=== PATIENT | male | born 1945 | race Caucasian/White ===

== ENCOUNTER 2017-11-21 12:28 | Inpatient (IN) | payer OTHER, MEDICARE ==
[~2017-11-21] VITALS: Ht 182.9 cm; Wt 72.0 kg
[~2017-11-21 12:28] MED LIST: AMLO5TAB PO; AMOX-422 PO; CLOP75TA33 PO; FURO40TA4 PO; IPRA3AMP IH; METO100T14 PO; NITR0.4T51 SL; PANT40TA4 PO; POTA20TA10 PO; PRED20TA PO; RANO500T3 PO
[2017-11-21 13:15] LABS: BASOPHILS % (AUTO) 0 % (0-1); EOSINOPHILS # (AUTO) 0.3 X10'3 (0-0.9); EOSINOPHILS % (AUTO) 1.9 % (0-6); HEMATOCRIT 33.5 % (42.0-52.0); LYMPHOCYTES # (AUTO) 0.5 X10'3 (1.1-4.8); LYMPHOCYTES % (AUTO) 3.3 % (21-51); MEAN CORPUSCULAR HEMOGLOBIN 28.4 PG (27.0-31.0); MEAN CORPUSCULAR VOLUME 86.1 FL (78-98); MEAN PLATELET VOLUME 8.9 FL (7.4-10.4); MONOCYTES # (AUTO) 0.5 X10'3 (0-0.9); MONOCYTES % (AUTO) 3.4 % (2-12); NEUTROPHILS % (AUTO) 91.4 % (42-75); PLATELET COUNT 319 X10'3 (140-440); RED BLOOD COUNT 3.89 X10'6 (4.70-6.10); RED CELL DISTRIBUTION WIDTH 18.1 % (11.5-14.5); WHITE BLOOD COUNT 14.2 X10'3 (4.5-11.0)
[2017-11-21 13:25] LABS: INR 1.2 INR; PARTIAL THROMBOPLASTIN TIME 29 SECONDS (22-32)
[2017-11-21 13:30] LABS: ALANINE AMINOTRANSFERASE 206 U/L (12-78); ALBUMIN 3.5 G/DL (3.4-5.0); ALBUMIN/GLOBULIN RATIO 0.9 (1.1-1.5); ALKALINE PHOSPHATASE 415 IU/L (46-116); ANION GAP 12 (8-16); ASPARTATE AMINO TRANSFERASE 83 U/L (10-37); BILIRUBIN,TOTAL 1.1 MG/DL (0.1-1.0); BLOOD UREA NITROGEN 95 MG/DL (7-18); CALCIUM 9.3 MG/DL (8.5-10.1); CHLORIDE 91 MMOL/L (99-107); GLUCOSE 225 MG/DL (70-104); POTASSIUM 5.2 MMOL/L (3.5-5.1); SODIUM 129 MMOL/L (135-145); TOTAL CARBON DIOXIDE 25.7 MMOL/L (24-32); TOTAL PROTEIN 7.4 G/DL (6.4-8.2); eGFR 26 ML/MIN
[2017-11-21] MEDS ORDERED: HYDROcodone/acetaminophen 5mg/325mg tablet PO PRN (14:10)
[2017-11-21] MEDS ORDERED: mag hydrox/Alum hydrox/simeth 30ml oral suspension PO PRN (14:10)
[2017-11-21] MEDS ORDERED: magnesium hydroxide 30ml (MOM) UD suspension PO PRN (14:10)
[2017-11-21] MEDS ORDERED: sodium chloride 0.45% 1,000 ML IV SCH (14:10)
[2017-11-21] MEDS ORDERED: CefTRIAXone 2gm/NS 100ml IVPB 100 ML IV ONE (14:10)
[2017-11-21] MEDS ORDERED: azithromycin/NS 500mg/250ml 250 ML IV ONE (14:10)
[2017-11-21] MEDS ORDERED: acetaminophen 325mg tablet PO PRN ×2 (14:10)
[2017-11-21] MEDS ORDERED: morphine sulfate 8 MG/ML SYRINGE IV PRN ×2 (14:10)
[2017-11-21 14:41] LABS: MAGNESIUM 2.3 MG/DL (1.5-2.4)
[2017-11-21] MEDS ORDERED: FERR324T4 PO (14:53)
[2017-11-21] MEDS ORDERED: SPIR50TA3 PO (14:53)
[2017-11-21] MEDS ORDERED: RANI150T8 PO (14:53)
[2017-11-21] MEDS ORDERED: BUPR75TA8 PO (14:53)
[2017-11-21] MEDS ORDERED: HYDR-565 PO (14:53)
[2017-11-21] MEDS ORDERED: ATOR20TA66 PO (14:53)
[2017-11-21] MEDS ORDERED: APIX5TAB3 PO (14:53)
[2017-11-21] MEDS ORDERED: MULT-933 PO (14:53)
[2017-11-21] MEDS ORDERED: MAGN400T6 PO (14:53)
[2017-11-21] MEDS ORDERED: CETI10TA18 PO (14:53)
[2017-11-21] MEDS ORDERED: DOCU100C41 PO (14:53)
[2017-11-21] MEDS ORDERED: furosemide 10 MG/1 ML 10ml inj IV ONE (15:00)
[2017-11-21] MEDS: HYDROcodone/acetaminophen 10/325mg tab PO PRN (15:08)
[2017-11-21 15:45] LABS: ABG BASE EXCESS -0.9 mmol/L (-2.0-3.0); ABG HCO3 22.2 mmol/L (22.0-26.0); ABG OXYGEN SATURATION 85.8 % (95-98); ABG PCO2 (T) 31.9 mmHg (35.0-48.0); ABG PH (T) 7.461 (7.350-7.450); ABG PO2 (T) 52.3 mmHg (83-108); ALLEN'S TEST Positive; FCOHb 0.9 % (0.5-1.5); FMetHb 0.1 % (0.3-1.12); FO2Hb 84.9 % (94-100); TOTAL HEMOGLOBIN 11.2 G/dl (14.0-18.0)
[2017-11-21] MEDS ORDERED: ALB0.5UD IH (15:55)
[2017-11-21 16:30] LABS: NUCLEATED RED BLOOD CELLS 3 /100WBC (0-0); TOTAL CELLS COUNTED 100
[2017-11-21 16:31] LABS: ANISOCYTOSIS 2+; PLATELET ESTIMATE NORMAL
[2017-11-21 16:32] LABS: ELLIPTOCYTES FEW; POLYCHROMASIA 1+
[2017-11-21 16:45] VITALS: BP 144/86
[2017-11-21 19:00] VITALS: BP 97/58
[2017-11-21 20:00] VITALS: BP_SYST 88; BP_SYST 89; BP_SYST 97; BP_DIAS 55; BP_DIAS 58
[2017-11-21] MEDS ORDERED: temazepam 15mg capsule PO PRN (21:00)
[2017-11-21 23:00] VITALS: BP 131/71
[2017-11-22 02:01] LABS: BASOPHILS % (AUTO) 0.1 % (0-1); EOSINOPHILS % (AUTO) 0 % (0-6); HEMATOCRIT 31.1 % (42.0-52.0); HEMOGLOBIN 10.7 g/dl (14.0-17.9); LYMPHOCYTES # (AUTO) 0.3 X10'3 (1.1-4.8); LYMPHOCYTES % (AUTO) 1.2 % (21-51); MEAN CORPUSCULAR HEMOGLOBIN 29.6 PG (27.0-31.0); MEAN CORPUSCULAR HGB CONC 34.5 % (33.0-36.5); MEAN CORPUSCULAR VOLUME 85.8 FL (78-98); MEAN PLATELET VOLUME 9.2 FL (7.4-10.4); MONOCYTES # (AUTO) 0.5 X10'3 (0-0.9); MONOCYTES % (AUTO) 1.7 % (2-12); NEUTROPHILS # (AUTO) 26.7 X10'3 (1.8-7.7); PLATELET COUNT 247 X10'3 (140-440); RED BLOOD COUNT 3.62 X10'6 (4.70-6.10)
[2017-11-22 02:07] LABS: INR 1.1 INR; PROTHROMBIN TIME 11.7 SECONDS (9.0-12.0)
[2017-11-22 02:14] LABS: WHITE BLOOD COUNT 27.5 X10'3 (4.5-11.0)
[2017-11-22 02:17] LABS: ANION GAP 12 (8-16); BLOOD UREA NITROGEN 99 MG/DL (7-18); BUN/CREATININE RATIO 44.2 (5.4-32.0); CALCIUM 8.7 MG/DL (8.5-10.1); CHLORIDE 93 MMOL/L (99-107); CREATININE 2.24 MG/DL (0.60-1.10); GLUCOSE 177 MG/DL (70-104); MAGNESIUM 2.3 MG/DL (1.5-2.4); POTASSIUM 4.7 MMOL/L (3.5-5.1); SODIUM 130 MMOL/L (135-145); TOTAL CARBON DIOXIDE 25.1 MMOL/L (24-32); eGFR 29 ML/MIN
[2017-11-22 03:00] VITALS: BP 127/76
[2017-11-22 03:06] LABS: TOTAL CELLS COUNTED 100
[2017-11-22 03:08] LABS: ANISOCYTOSIS 2+; BURR CELLS 1+; ELLIPTOCYTES FEW; PLATELET ESTIMATE NORMAL; POLYCHROMASIA 1+
[2017-11-22 06:00] VITALS: BP 136/72
[2017-11-22] MEDS ORDERED: cefTRIAXone 1g/NS 100ml IVPB 100 ML IV SCH (08:00)
[2017-11-22] MEDS ORDERED: enoxaparin 40mg/0.4ml syringe SQ SCH (08:00)
[2017-11-22] MEDS: HYDROcodone/acetaminophen 10/325mg tab PO PRN ×3 (09:52→20:56)
[2017-11-22 11:00] VITALS: BP 125/68
[2017-11-22] MEDS: azithromycin/NS 500mg/250ml 250 ML IV SCH (11:10)
[2017-11-22] MEDS ORDERED: HYDROcodone/acetaminophen 10/325mg tab PO PRN (11:50)
[2017-11-22] MEDS ORDERED: nitroGLYCERIN 0.4mg SUBLingual tab SL PRN (11:50)
[2017-11-22] MEDS ORDERED: albuterol 2.5 MG/3 ML nebule NEB PRN (11:50)
[2017-11-22] MEDS ORDERED: methylPREDNISolone sod succ 125mg/2ml vial IV ONE (13:55)
[2017-11-22 15:00] VITALS: BP 105/79
[2017-11-22] MEDS: ipratropium/albuterol 3ml nebule NEB SCH ×2 (15:42→19:49)
[2017-11-22] MEDS: lactobacillus rhamnosus 10,000 MMU CELLS/CAPSULE PO SCH (18:20)
[2017-11-22 19:00] VITALS: BP 133/73
[2017-11-22] MEDS: piperacillin/tazobactam inj. 3.375 GM in normal saline 100ml IV SCH (20:50)
[2017-11-22] MEDS: docusate sod 100mg capsule PO SCH (20:50)
[2017-11-22] MEDS: potassium Cl 20 mEq SR tablet PO SCH (20:51)
[2017-11-22] MEDS: metoprolol tartrate 50mg tablet PO SCH (20:51)
[2017-11-22] MEDS: apixaban 5mg tablet PO SCH (20:51)
[2017-11-22] MEDS: buPROPion 75mg tablet PO SCH (20:52)
[2017-11-22] MEDS: magnesium oxide 400mg tablet PO SCH (20:52)
[2017-11-22] MEDS: famotidine 20mg tablet PO SCH (20:53)
[2017-11-22 23:00] VITALS: BP 116/46
[2017-11-23] VITALS (7 sets, daily range): BP systolic 82–123; BP diastolic 39–68
[2017-11-23] MEDS ORDERED: piperacillin/tazo 4.5gm/100ml 100 ML IV SCH
[2017-11-23] MEDS: piperacillin/tazobactam inj. 3.375 GM in normal saline 100ml IV SCH ×4 (02:56→21:35)
[2017-11-23] MEDS: HYDROcodone/acetaminophen 10/325mg tab PO PRN ×3 (03:24→21:37)
[2017-11-23 05:08] LABS: BASOPHILS % (AUTO) 0 % (0-1); EOSINOPHILS # (AUTO) 0.1 X10'3 (0-0.9); EOSINOPHILS % (AUTO) 1.1 % (0-6); HEMATOCRIT 30.7 % (42.0-52.0); LYMPHOCYTES # (AUTO) 0.3 X10'3 (1.1-4.8); LYMPHOCYTES % (AUTO) 2.9 % (21-51); MEAN CORPUSCULAR HEMOGLOBIN 28.2 PG (27.0-31.0); MEAN CORPUSCULAR HGB CONC 32.5 % (33.0-36.5); MEAN CORPUSCULAR VOLUME 86.8 FL (78-98); MONOCYTES # (AUTO) 0.1 X10'3 (0-0.9); NEUTROPHILS # (AUTO) 8.5 X10'3 (1.8-7.7); PLATELET COUNT 190 X10'3 (140-440); RED BLOOD COUNT 3.54 X10'6 (4.70-6.10); WHITE BLOOD COUNT 8.9 X10'3 (4.5-11.0)
[2017-11-23 05:25] LABS: INR 1.1 INR; PROTHROMBIN TIME 11.6 SECONDS (9.0-12.0)
[2017-11-23 05:39] LABS: ALBUMIN 2.9 G/DL (3.4-5.0); ANION GAP 11 (8-16); BLOOD UREA NITROGEN 83 MG/DL (7-18); CALCIUM 8.7 MG/DL (8.5-10.1); CHLORIDE 92 MMOL/L (99-107); CREATININE 2.13 MG/DL (0.60-1.10); GLUCOSE 184 MG/DL (70-104); POTASSIUM 5.4 MMOL/L (3.5-5.1); SODIUM 127 MMOL/L (135-145); TOTAL CARBON DIOXIDE 24.5 MMOL/L (24-32); eGFR 31 ML/MIN
[2017-11-23 05:50] LABS: MAGNESIUM 2.5 MG/DL (1.5-2.4)
[2017-11-23] MEDS: ipratropium/albuterol 3ml nebule NEB SCH ×4 (07:28→19:56)
[2017-11-23] MEDS: apixaban 5mg tablet PO SCH ×2 (07:35→21:35)
[2017-11-23] MEDS: azithromycin/NS 500mg/250ml 250 ML IV SCH (07:35)
[2017-11-23] MEDS: buPROPion 75mg tablet PO SCH ×2 (07:35→21:36)
[2017-11-23] MEDS: multivitamins, therapeutics tablet PO SCH (07:36)
[2017-11-23] MEDS: predniSONE 20 mg tablet PO SCH (07:36)
[2017-11-23] MEDS: atorvastatin 20mg tablet PO SCH (07:36)
[2017-11-23] MEDS: clopidogrel 75mg tablet PO SCH (07:36)
[2017-11-23] MEDS: docusate sod 100mg capsule PO SCH ×2 (07:36→21:35)
[2017-11-23] MEDS: lactobacillus rhamnosus 10,000 MMU CELLS/CAPSULE PO SCH ×2 (07:36→16:55)
[2017-11-23] MEDS: cetirizine 10mg tablet PO SCH (07:36)
[2017-11-23] MEDS: ferrous sulfate 325mg tablet PO SCH (07:36)
[2017-11-23] MEDS: furosemide 40mg tablet PO SCH (07:37)
[2017-11-23] MEDS: potassium Cl 20 mEq SR tablet PO SCH ×2 (08:00→21:35)
[2017-11-23] MEDS: emollient combination-Eucerin 250 ML LOTION TP SCH (08:00)
[2017-11-23] MEDS: magnesium oxide 400mg tablet PO SCH ×2 (08:00→21:36)
[2017-11-23] MEDS: amLODIPine 5mg tablet PO SCH (08:00)
[2017-11-23] MEDS ORDERED: spironolactone 50 MG tablet PO SCH (08:00)
[2017-11-23] MEDS: metoprolol tartrate 50mg tablet PO SCH ×2 (08:00→21:36)
[2017-11-23] MEDS ORDERED: normal saline 1000ml 1,000 ML IV SCH (21:25)
[2017-11-23] MEDS: famotidine 20mg tablet PO SCH (21:37)
[2017-11-24] VITALS (9 sets, daily range): BP systolic 90–115; BP diastolic 35–73
[2017-11-24] MEDS: ondansetron/PF 4mg/2ml inj IV PRN ×2 (00:48→19:52)
[2017-11-24] MEDS: piperacillin/tazobactam inj. 3.375 GM in normal saline 100ml IV SCH ×4 (02:44→19:40)
[2017-11-24 05:17] LABS: BASOPHILS % (AUTO) 0 % (0-1); EOSINOPHILS % (AUTO) 0 % (0-6); HEMATOCRIT 25.9 % (42.0-52.0); HEMOGLOBIN 8.4 g/dl (14.0-17.9); LYMPHOCYTES # (AUTO) 0.4 X10'3 (1.1-4.8); LYMPHOCYTES % (AUTO) 2.8 % (21-51); MEAN CORPUSCULAR HEMOGLOBIN 28.2 PG (27.0-31.0); MEAN CORPUSCULAR HGB CONC 32.5 % (33.0-36.5); MEAN CORPUSCULAR VOLUME 86.8 FL (78-98); MEAN PLATELET VOLUME 8.9 FL (7.4-10.4); MONOCYTES # (AUTO) 0.5 X10'3 (0-0.9); MONOCYTES % (AUTO) 4.2 % (2-12); NEUTROPHILS # (AUTO) 11.6 X10'3 (1.8-7.7); PLATELET COUNT 139 X10'3 (140-440); RED BLOOD COUNT 2.99 X10'6 (4.70-6.10); RED CELL DISTRIBUTION WIDTH 18.2 % (11.5-14.5); WHITE BLOOD COUNT 12.5 X10'3 (4.5-11.0)
[2017-11-24 05:25] LABS: INR 1.3 INR; PROTHROMBIN TIME 13.3 SECONDS (9.0-12.0)
[2017-11-24 05:47] LABS: ALBUMIN 2.4 G/DL (3.4-5.0); ANION GAP 12 (8-16); BLOOD UREA NITROGEN 92 MG/DL (7-18); BUN/CREATININE RATIO 39.3 (5.4-32.0); CALCIUM 8.1 MG/DL (8.5-10.1); CHLORIDE 95 MMOL/L (99-107); CREATININE 2.34 MG/DL (0.60-1.10); GLUCOSE 131 MG/DL (70-104); MAGNESIUM 2.5 MG/DL (1.5-2.4); POTASSIUM 4.8 MMOL/L (3.5-5.1); SODIUM 129 MMOL/L (135-145); TOTAL CARBON DIOXIDE 22.5 MMOL/L (24-32); eGFR 28 ML/MIN
[2017-11-24] MEDS: ipratropium/albuterol 3ml nebule NEB SCH ×4 (07:17→19:09)
[2017-11-24 07:21] LABS: PARTIAL THROMBOPLASTIN TIME 33 SECONDS (22-32)
[2017-11-24] MEDS: buPROPion 75mg tablet PO SCH ×2 (07:36→19:42)
[2017-11-24] MEDS: clopidogrel 75mg tablet PO SCH (07:37)
[2017-11-24] MEDS: predniSONE 20 mg tablet PO SCH (07:37)
[2017-11-24] MEDS: atorvastatin 20mg tablet PO SCH (07:37)
[2017-11-24] MEDS: ferrous sulfate 325mg tablet PO SCH (07:37)
[2017-11-24] MEDS: multivitamins, therapeutics tablet PO SCH (07:37)
[2017-11-24] MEDS: azithromycin 250mg tablet PO SCH (07:37)
[2017-11-24] MEDS: apixaban 5mg tablet PO SCH (07:37)
[2017-11-24] MEDS: cetirizine 10mg tablet PO SCH (07:37)
[2017-11-24] MEDS: lactobacillus rhamnosus 10,000 MMU CELLS/CAPSULE PO SCH ×2 (07:37→17:14)
[2017-11-24] MEDS: emollient combination-Eucerin 250 ML LOTION TP SCH (08:00)
[2017-11-24] MEDS: magnesium oxide 400mg tablet PO SCH ×2 (08:00→19:43)
[2017-11-24] MEDS ORDERED: furosemide 20 MG/2 ML vial IV SCH (08:00)
[2017-11-24] MEDS: furosemide 40mg tablet PO SCH (08:00)
[2017-11-24] MEDS: docusate sod 100mg capsule PO SCH ×2 (08:00→19:41)
[2017-11-24] MEDS: metoprolol tartrate 50mg tablet PO SCH (08:00)
[2017-11-24] MEDS: potassium Cl 20 mEq SR tablet PO SCH ×2 (08:00→19:43)
[2017-11-24] MEDS: amLODIPine 5mg tablet PO SCH (08:00)
[2017-11-24] MEDS ORDERED: MAGN400O6 PO (10:24)
[2017-11-24] MEDS ORDERED: EMOL200L TP (10:24)
[2017-11-24] MEDS ORDERED: FAMO20TA8 PO (10:24)
[2017-11-24] MEDS ORDERED: IPRA3AMP9 NEB (10:24)
[2017-11-24] MEDS ORDERED: AZI25OT PO (10:24)
[2017-11-24] MEDS ORDERED: LACT1CAP26 PO (10:24)
[2017-11-24] MEDS ORDERED: ZOF4I IV (10:24)
[2017-11-24] MEDS ORDERED: PRED20TA PO (10:24)
[2017-11-24] MEDS: nicotine 21mg patch - 24 hr TD SCH (13:43)
[2017-11-24] MEDS ORDERED: furosemide 20 MG/2 ML vial IV ONE (15:05)
[2017-11-24] MEDS: HYDROcodone/acetaminophen 10/325mg tab PO PRN (19:44)
[2017-11-24] MEDS: famotidine 20mg tablet PO SCH (19:52)
[2017-11-24] MEDS ORDERED: furosemide 10 MG/1 ML 10ml inj IV SCH (20:00)
[2017-11-25] VITALS (8 sets, daily range): BP systolic 0–137; BP diastolic 0–80
[2017-11-25] MEDS: piperacillin/tazobactam inj. 3.375 GM in normal saline 100ml IV SCH ×4 (02:31→19:34)
[2017-11-25 06:45] LABS: INR 1.4 INR; PROTHROMBIN TIME 14.1 SECONDS (9.0-12.0)
[2017-11-25 06:46] LABS: ALBUMIN 2.7 G/DL (3.4-5.0); ANION GAP 15 (8-16); BLOOD UREA NITROGEN 109 MG/DL (7-18); BUN/CREATININE RATIO 40.8 (5.4-32.0); CALCIUM 8.3 MG/DL (8.5-10.1); CHLORIDE 92 MMOL/L (99-107); CREATININE 2.67 MG/DL (0.60-1.10); GLUCOSE 166 MG/DL (70-104); MAGNESIUM 2.5 MG/DL (1.5-2.4); POTASSIUM 4.9 MMOL/L (3.5-5.1); SODIUM 126 MMOL/L (135-145); TOTAL CARBON DIOXIDE 19.2 MMOL/L (24-32); eGFR 24 ML/MIN
[2017-11-25] MEDS: ipratropium/albuterol 3ml nebule NEB SCH ×4 (07:00→19:23)
[2017-11-25] MEDS: HYDROcodone/acetaminophen 10/325mg tab PO PRN ×2 (07:19→14:38)
[2017-11-25] MEDS: magnesium oxide 400mg tablet PO SCH ×2 (08:00→20:00)
[2017-11-25] MEDS: atorvastatin 20mg tablet PO SCH (08:35)
[2017-11-25] MEDS: nicotine 21mg patch - 24 hr TD SCH (08:35)
[2017-11-25] MEDS: predniSONE 20 mg tablet PO SCH (08:36)
[2017-11-25] MEDS: ferrous sulfate 325mg tablet PO SCH (08:37)
[2017-11-25] MEDS: buPROPion 75mg tablet PO SCH ×2 (08:37→19:43)
[2017-11-25] MEDS: azithromycin 250mg tablet PO SCH (08:37)
[2017-11-25] MEDS: cetirizine 10mg tablet PO SCH (08:37)
[2017-11-25] MEDS: clopidogrel 75mg tablet PO SCH (08:37)
[2017-11-25] MEDS: multivitamins, therapeutics tablet PO SCH (08:37)
[2017-11-25] MEDS: potassium Cl 20 mEq SR tablet PO SCH ×2 (08:38→19:43)
[2017-11-25] MEDS: docusate sod 100mg capsule PO SCH ×2 (08:38→19:43)
[2017-11-25] MEDS: lactobacillus rhamnosus 10,000 MMU CELLS/CAPSULE PO SCH ×2 (08:38→19:43)
[2017-11-25 08:45] LABS: BASOPHILS % (AUTO) 0 % (0-1); EOSINOPHILS # (AUTO) 0.3 X10'3 (0-0.9); EOSINOPHILS % (AUTO) 1.9 % (0-6); HEMATOCRIT 28.4 % (42.0-52.0); HEMOGLOBIN 9.2 g/dl (14.0-17.9); LYMPHOCYTES # (AUTO) 0.7 X10'3 (1.1-4.8); LYMPHOCYTES % (AUTO) 4.2 % (21-51); MEAN CORPUSCULAR HEMOGLOBIN 28.4 PG (27.0-31.0); MEAN CORPUSCULAR HGB CONC 32.5 % (33.0-36.5); MEAN CORPUSCULAR VOLUME 87.5 FL (78-98); MEAN PLATELET VOLUME 9.9 FL (7.4-10.4); MONOCYTES # (AUTO) 0.4 X10'3 (0-0.9); MONOCYTES % (AUTO) 2.2 % (2-12); NEUTROPHILS # (AUTO) 14.8 X10'3 (1.8-7.7); NEUTROPHILS % (AUTO) 91.7 % (42-75); PLATELET COUNT 130 X10'3 (140-440); RED BLOOD COUNT 3.24 X10'6 (4.70-6.10); RED CELL DISTRIBUTION WIDTH 18.6 % (11.5-14.5); WHITE BLOOD COUNT 16.1 X10'3 (4.5-11.0)
[2017-11-25 09:57] LABS: ALBUMIN 2.7 G/DL (3.4-5.0); ANION GAP 13 (8-16); BLOOD UREA NITROGEN 108 MG/DL (7-18); BUN/CREATININE RATIO 40.1 (5.4-32.0); CALCIUM 8.3 MG/DL (8.5-10.1); CHLORIDE 92 MMOL/L (99-107); CREATININE 2.69 MG/DL (0.60-1.10); GLUCOSE 151 MG/DL (70-104); POTASSIUM 4.8 MMOL/L (3.5-5.1); SODIUM 129 MMOL/L (135-145); TOTAL CARBON DIOXIDE 24.1 MMOL/L (24-32); eGFR 24 ML/MIN
[2017-11-25] MEDS ORDERED: furosemide 10 MG/1 ML 10ml inj IV ONE (14:05)
[2017-11-25] MEDS: famotidine 20mg tablet PO SCH (20:29)
[2017-11-25 20:53] LABS: CLARITY,URINE Clear (Clear); COLOR,URINE Yellow (Yellow); GLUCOSE, URINE Negative (Neg); KETONES,URINE Negative (Neg); LEUKOCYTE ESTERASE ,URINE Trace (Neg); NITRITES, URINE Negative (Neg); OCCULT BLOOD,URINE Negative (Neg); PH,URINE 5.5 (4.8-8.0); PROTEIN,URINE Negative (Neg)
[2017-11-25 21:01] LABS: CREATININE,URINE RANDOM 12.3 MG/DL; TOTAL PROTEIN,URINE RANDOM 14.8 MG/DL
[2017-11-25 21:12] LABS: UA COLLECTION TYPE CLN CATCH MIDSTREAM
[2017-11-25 21:23] LABS: BACTERIA,URINE NONE SEEN /HPF (Neg); MUCUS STRANDS NONE SEEN /LPF (Neg); RBC,URINE 0-2 /HPF (0-2); SQUAMOUS EPITHELIAL CELL,UR FEW /LPF (FEW); WBC,URINE NONE SEEN /HPF (0-4); YEAST FEW /HPF (NEGATIVE)
[2017-11-25 22:09] LABS: UA EOSINOPHILS NO EOS /HPF
[2017-11-26] VITALS (9 sets, daily range): BP systolic 124–144; BP diastolic 55–77
[2017-11-26] MEDS: piperacillin/tazobactam inj. 3.375 GM in normal saline 100ml IV SCH ×4 (02:10→19:19)
[2017-11-26 03:29] LABS: BASOPHILS % (AUTO) 0.1 % (0-1); EOSINOPHILS # (AUTO) 0.2 X10'3 (0-0.9); EOSINOPHILS % (AUTO) 1.8 % (0-6); HEMATOCRIT 26.3 % (42.0-52.0); HEMOGLOBIN 8.6 g/dl (14.0-17.9); LYMPHOCYTES # (AUTO) 0.4 X10'3 (1.1-4.8); LYMPHOCYTES % (AUTO) 3.3 % (21-51); MEAN CORPUSCULAR HEMOGLOBIN 28.3 PG (27.0-31.0); MEAN CORPUSCULAR HGB CONC 32.8 % (33.0-36.5); MEAN CORPUSCULAR VOLUME 86.3 FL (78-98); MEAN PLATELET VOLUME 9.3 FL (7.4-10.4); MONOCYTES # (AUTO) 0.4 X10'3 (0-0.9); MONOCYTES % (AUTO) 3.3 % (2-12); NEUTROPHILS # (AUTO) 11.2 X10'3 (1.8-7.7); NEUTROPHILS % (AUTO) 91.5 % (42-75); PLATELET COUNT 113 X10'3 (140-440); RED BLOOD COUNT 3.05 X10'6 (4.70-6.10); RED CELL DISTRIBUTION WIDTH 18.7 % (11.5-14.5); WHITE BLOOD COUNT 12.3 X10'3 (4.5-11.0)
[2017-11-26 03:39] LABS: ALBUMIN 2.6 G/DL (3.4-5.0); ANION GAP 12 (8-16); BLOOD UREA NITROGEN 94 MG/DL (7-18); BUN/CREATININE RATIO 38.1 (5.4-32.0); CALCIUM 8.5 MG/DL (8.5-10.1); CHLORIDE 95 MMOL/L (99-107); CREATININE 2.47 MG/DL (0.60-1.10); GLUCOSE 178 MG/DL (70-104); INR 1.2 INR; MAGNESIUM 2.3 MG/DL (1.5-2.4); POTASSIUM 4.1 MMOL/L (3.5-5.1); PROTHROMBIN TIME 12.7 SECONDS (9.0-12.0); SODIUM 132 MMOL/L (135-145); TOTAL CARBON DIOXIDE 25.4 MMOL/L (24-32); eGFR 26 ML/MIN
[2017-11-26] MEDS: ipratropium/albuterol 3ml nebule NEB SCH ×4 (07:27→20:28)
[2017-11-26] MEDS: multivitamins, therapeutics tablet PO SCH (07:49)
[2017-11-26] MEDS: nicotine 21mg patch - 24 hr TD SCH (07:49)
[2017-11-26] MEDS: potassium Cl 20 mEq SR tablet PO SCH ×2 (07:50→19:16)
[2017-11-26] MEDS: predniSONE 20 mg tablet PO SCH (07:50)
[2017-11-26] MEDS: clopidogrel 75mg tablet PO SCH (07:50)
[2017-11-26] MEDS: atorvastatin 20mg tablet PO SCH (07:50)
[2017-11-26] MEDS: ferrous sulfate 325mg tablet PO SCH (07:50)
[2017-11-26] MEDS: cetirizine 10mg tablet PO SCH (07:50)
[2017-11-26] MEDS: azithromycin 250mg tablet PO SCH (07:50)
[2017-11-26] MEDS: magnesium oxide 400mg tablet PO SCH ×2 (07:50→19:18)
[2017-11-26] MEDS: lactobacillus rhamnosus 10,000 MMU CELLS/CAPSULE PO SCH ×2 (07:51→16:33)
[2017-11-26] MEDS: buPROPion 75mg tablet PO SCH ×2 (07:51→19:16)
[2017-11-26] MEDS: HYDROcodone/acetaminophen 10/325mg tab PO PRN ×3 (07:51→21:22)
[2017-11-26] MEDS: docusate sod 100mg capsule PO SCH ×2 (08:05→19:17)
[2017-11-26] MEDS: emollient combination-Eucerin 250 ML LOTION TP SCH ×2 (09:07→10:11)
[2017-11-26] MEDS: Protein Shake (high protein) 240ml (8oz) cup PO SCH ×2 (13:02→18:54)
[2017-11-26] MEDS ORDERED: furosemide 40mg/4ml inj IV SCH ×2 (20:00)
[2017-11-26] MEDS: famotidine 20mg tablet PO SCH (21:20)
[2017-11-27] MEDS: HYDROcodone/acetaminophen 10/325mg tab PO PRN ×2 (01:37→08:11)
[2017-11-27] MEDS: piperacillin/tazobactam inj. 3.375 GM in normal saline 100ml IV SCH ×2 (01:38→08:10)
[2017-11-27 02:00] VITALS: BP 132/70
[2017-11-27 02:11] LABS: BASOPHILS % (AUTO) 0.2 % (0-1); EOSINOPHILS # (AUTO) 0.1 X10'3 (0-0.9); EOSINOPHILS % (AUTO) 1.1 % (0-6); HEMATOCRIT 25.6 % (42.0-52.0); HEMOGLOBIN 8.3 g/dl (14.0-17.9); LYMPHOCYTES # (AUTO) 0.4 X10'3 (1.1-4.8); LYMPHOCYTES % (AUTO) 3.4 % (21-51); MEAN CORPUSCULAR HEMOGLOBIN 28.3 PG (27.0-31.0); MEAN CORPUSCULAR HGB CONC 32.6 % (33.0-36.5); MEAN CORPUSCULAR VOLUME 86.9 FL (78-98); MEAN PLATELET VOLUME 10.5 FL (7.4-10.4); MONOCYTES # (AUTO) 0.5 X10'3 (0-0.9); MONOCYTES % (AUTO) 3.4 % (2-12); NEUTROPHILS # (AUTO) 12.2 X10'3 (1.8-7.7); NEUTROPHILS % (AUTO) 91.9 % (42-75); PLATELET COUNT 112 X10'3 (140-440); RED BLOOD COUNT 2.94 X10'6 (4.70-6.10); RED CELL DISTRIBUTION WIDTH 18.4 % (11.5-14.5); WHITE BLOOD COUNT 13.3 X10'3 (4.5-11.0)
[2017-11-27 02:24] LABS: ALBUMIN 2.6 G/DL (3.4-5.0); ANION GAP 12 (8-16); BLOOD UREA NITROGEN 74 MG/DL (7-18); BUN/CREATININE RATIO 32.2 (5.4-32.0); CALCIUM 8.6 MG/DL (8.5-10.1); CHLORIDE 98 MMOL/L (99-107); GLUCOSE 251 MG/DL (70-104); SODIUM 134 MMOL/L (135-145); TOTAL CARBON DIOXIDE 23.7 MMOL/L (24-32); eGFR 28 ML/MIN
[2017-11-27 06:30] VITALS: BP 128/76
[2017-11-27] MEDS: ipratropium/albuterol 3ml nebule NEB SCH (07:13)
[2017-11-27] MEDS: Protein Shake (high protein) 240ml (8oz) cup PO SCH (08:00)
[2017-11-27] MEDS: nicotine 21mg patch - 24 hr TD SCH (08:10)
[2017-11-27] MEDS: azithromycin 250mg tablet PO SCH (08:10)
[2017-11-27] MEDS: ferrous sulfate 325mg tablet PO SCH (08:11)
[2017-11-27] MEDS: lactobacillus rhamnosus 10,000 MMU CELLS/CAPSULE PO SCH (08:11)
[2017-11-27] MEDS: multivitamins, therapeutics tablet PO SCH (08:11)
[2017-11-27] MEDS: magnesium oxide 400mg tablet PO SCH (08:11)
[2017-11-27] MEDS: docusate sod 100mg capsule PO SCH (08:11)
[2017-11-27] MEDS: predniSONE 20 mg tablet PO SCH (08:11)
[2017-11-27] MEDS: atorvastatin 20mg tablet PO SCH (08:11)
[2017-11-27] MEDS: potassium Cl 20 mEq SR tablet PO SCH (08:11)
[2017-11-27] MEDS: clopidogrel 75mg tablet PO SCH (08:11)
[2017-11-27] MEDS: cetirizine 10mg tablet PO SCH (08:11)
[2017-11-27] MEDS: buPROPion 75mg tablet PO SCH (08:11)
[2017-11-27] MEDS: emollient combination-Eucerin 250 ML LOTION TP SCH (08:12)
== END 2017-11-27 11:15 | disposition home health service (06) | DRG 871 ==
LOC: ER 12:29 → ED HOLD 14:10 → PCU 3S 16:30
PROVIDERS: ADMIT Internal Medicine; ATTEND Internal Medicine Critical Care Medicine
DX: A41.9 Sepsis, unspecified organism (principal); J18.9 Pneumonia, unspecified organism; N17.9 Acute kidney failure, unspecified; E46 Unspecified protein-calorie malnutrition; I13.0 Hypertensive heart and chronic kidney disease with heart failure and stage 1 through stage 4 chronic kidney disease, or unspecified chronic kidney disease; I27.20 Pulmonary hypertension, unspecified; E87.5 Hyperkalemia; I50.9 Heart failure, unspecified; E87.1 Hypo-osmolality and hyponatremia; N18.5 Chronic kidney disease, stage 5; J44.0 Chronic obstructive pulmonary disease with (acute) lower respiratory infection; I48.91 Unspecified atrial fibrillation; D63.8 Anemia in other chronic diseases classified elsewhere; E78.00 Pure hypercholesterolemia, unspecified; I25.119 Atherosclerotic heart disease of native coronary artery with unspecified angina pectoris; I73.9 Peripheral vascular disease, unspecified; K21.9 Gastro-esophageal reflux disease without esophagitis; F41.9 Anxiety disorder, unspecified; G89.29 Other chronic pain; K57.90 Diverticulosis of intestine, part unspecified, without perforation or abscess without bleeding; M54.9 Dorsalgia, unspecified; R06.03 Acute respiratory distress; F17.219 Nicotine dependence, cigarettes, with unspecified nicotine-induced disorders; Z95.5 Presence of coronary angioplasty implant and graft; Z90.79 Acquired absence of other genital organ(s); Z90.49 Acquired absence of other specified parts of digestive tract; Z99.81 Dependence on supplemental oxygen; Z88.8 Allergy status to other drugs, medicaments and biological substances; Z79.01 Long term (current) use of anticoagulants; Z79.899 Other long term (current) drug therapy; Z68.21 Body mass index [BMI] 21.0-21.9, adult
CPT/HCPCS: 36415; 36600; 71010; 80048; 80053; 81001; 82570; 82803; 82948; 83605; 83735; 83880; 84153; 84156; 84300; 84484; 85018; 85025; 85610; 85730; 86885; 86900; 86901; 87040; 87070; 87207; 93005; 93308; 94640; 94760; 97116; 97162; 99285; A6212; A6213; A6222; A6449; J0456; J0696; J1650; J1940; J2270; J2405; J2543; J2930; J7030; J7512

== ENCOUNTER 2017-12-02 22:24 | Inpatient (IN) | payer OTHER, MEDICARE ==
[~2017-12-02] VITALS: Ht 182.9 cm; Wt 70.4 kg
[~2017-12-02 22:24] MED LIST changes: +ALB0.5UD IH; -AMOX-422 PO; +APIX5TAB3 PO; +ATOR20TA66 PO; +AZI25OT PO; +BUPR75TA8 PO; +CETI10TA18 PO; +DOCU100C41 PO; +EMOL200L TP; +FAMO20TA8 PO; +FERR324T4 PO; +HYDR-565 PO; -IPRA3AMP IH; +IPRA3AMP9 NEB; +LACT1CAP26 PO; +MAGN400O6 PO; +MAGN400T6 PO; -METO100T14 PO; +MULT-933 PO; -PANT40TA4 PO; -RANO500T3 PO; +SPIR50TA3 PO; +ZOF4I IV
[2017-12-02 23:08] LABS: BASOPHILS % (AUTO) 0 % (0-1); EOSINOPHILS # (AUTO) 0.2 X10'3 (0-0.9); EOSINOPHILS % (AUTO) 1.6 % (0-6); HEMATOCRIT 29.7 % (42.0-52.0); HEMOGLOBIN 9.6 g/dl (14.0-17.9); LYMPHOCYTES # (AUTO) 0.7 X10'3 (1.1-4.8); LYMPHOCYTES % (AUTO) 7.1 % (21-51); MEAN CORPUSCULAR HEMOGLOBIN 28.5 PG (27.0-31.0); MEAN CORPUSCULAR HGB CONC 32.5 % (33.0-36.5); MEAN CORPUSCULAR VOLUME 87.8 FL (78-98); MEAN PLATELET VOLUME 10.1 FL (7.4-10.4); MONOCYTES # (AUTO) 0.5 X10'3 (0-0.9); MONOCYTES % (AUTO) 5.1 % (2-12); NEUTROPHILS # (AUTO) 8.1 X10'3 (1.8-7.7); NEUTROPHILS % (AUTO) 86.2 % (42-75); PLATELET COUNT 181 X10'3 (140-440); RED BLOOD COUNT 3.38 X10'6 (4.70-6.10); RED CELL DISTRIBUTION WIDTH 19.5 % (11.5-14.5); WHITE BLOOD COUNT 9.4 X10'3 (4.5-11.0)
[2017-12-02 23:20] LABS: INR 1.6 INR; PARTIAL THROMBOPLASTIN TIME 33 SECONDS (22-32); PROTHROMBIN TIME 16.2 SECONDS (9.0-12.0)
[2017-12-02 23:29] LABS: ALANINE AMINOTRANSFERASE 439 U/L (12-78); ALBUMIN/GLOBULIN RATIO 0.8 (1.1-1.5); ALKALINE PHOSPHATASE 387 IU/L (46-116); ANION GAP 19 (8-16); ASPARTATE AMINO TRANSFERASE 230 U/L (10-37); BILIRUBIN,TOTAL 1.9 MG/DL (0.1-1.0); BLOOD UREA NITROGEN 71 MG/DL (7-18); BUN/CREATININE RATIO 24.3 (5.4-32.0); CALCIUM 8.2 MG/DL (8.5-10.1); CHLORIDE 95 MMOL/L (99-107); CREATININE 2.92 MG/DL (0.60-1.10); GLUCOSE 188 MG/DL (70-104); POTASSIUM 5.5 MMOL/L (3.5-5.1); SODIUM 134 MMOL/L (135-145); TOTAL CARBON DIOXIDE 20.2 MMOL/L (24-32); eGFR 21 ML/MIN
[2017-12-02 23:33] LABS: MAGNESIUM 2.1 MG/DL (1.5-2.4)
[2017-12-02 23:41] LABS: ABG HCO3 17.3 mmol/L (22.0-26.0); ABG PCO2 (T) 20.5 mmHg (35.0-48.0); ABG PH (T) 7.542 (7.350-7.450); ABG PO2 (T) 51.4 mmHg (83-108); FCOHb 1.2 % (0.5-1.5); FLOW 3 L/min; FMetHb 0.3 % (0.3-1.12); FO2Hb 84.7 % (94-100); PATIENT TEMPERATURE 36.5; RESPIRATORY RATE (OBSERVED) 22 b/min; TOTAL HEMOGLOBIN 9.4 G/dl (14.0-18.0)
[2017-12-03] MEDS ORDERED: furosemide 10 MG/1 ML 10ml inj IV ONE (00:10)
[2017-12-03] MEDS ORDERED: acetaminophen 325mg tablet PO PRN ×2 (01:20)
[2017-12-03] MEDS ORDERED: HYDROcodone/acetaminophen 10/325mg tab PO PRN (01:55)
[2017-12-03 05:00] VITALS: BP 98/54
[2017-12-03 06:35] VITALS: BP 99/56
[2017-12-03] MEDS ORDERED: lactobacillus rhamnosus 10,000 MMU CELLS/CAPSULE PO SCH (07:30)
[2017-12-03] MEDS: ipratropium/albuterol 3ml nebule NEB SCH ×4 (07:58→19:29)
[2017-12-03] MEDS ORDERED: atorvastatin 20mg tablet PO SCH (08:00)
[2017-12-03] MEDS ORDERED: potassium Cl 20 mEq SR tablet PO SCH (08:00)
[2017-12-03] MEDS: furosemide 10 MG/1 ML 10ml inj IV SCH ×2 (08:00→20:36)
[2017-12-03] MEDS ORDERED: enoxaparin 40mg/0.4ml syringe SUBCUT SCH (08:00)
[2017-12-03] MEDS ORDERED: spironolactone 50 MG tablet PO SCH (08:00)
[2017-12-03] MEDS: apixaban 5mg tablet PO SCH ×2 (09:17→20:35)
[2017-12-03] MEDS: buPROPion 75mg tablet PO SCH ×2 (09:17→20:35)
[2017-12-03] MEDS: clopidogrel 75mg tablet PO SCH (09:17)
[2017-12-03] MEDS: docusate sod 100mg capsule PO SCH ×2 (09:18→20:35)
[2017-12-03 11:00] VITALS: BP 108/62
[2017-12-03] MEDS ORDERED: sodium bicarbonate (8.4%) 1 mEq/ml syringe IV STA (12:08)
[2017-12-03] MEDS ORDERED: sodium polystyrene sulfonate 15gm/60ml oral suspension PO ONE ×2 (12:10→18:20)
[2017-12-03 15:00] VITALS: BP 99/56
[2017-12-03 17:24] LABS: ALBUMIN 2.5 G/DL (3.4-5.0); ANION GAP 17 (8-16); CALCIUM 7.7 MG/DL (8.5-10.1); CHLORIDE 95 MMOL/L (99-107); CREATININE 3.13 MG/DL (0.60-1.10); GLUCOSE 153 MG/DL (70-104); POTASSIUM 5.6 MMOL/L (3.5-5.1); SODIUM 133 MMOL/L (135-145); eGFR 20 ML/MIN
[2017-12-03 17:47] LABS: BLOOD UREA NITROGEN 95 MG/DL (7-18); BUN/CREATININE RATIO 30.4 (5.4-32.0)
[2017-12-03 18:00] VITALS: BP 135/73
[2017-12-03] MEDS ORDERED: dextrose 50%-water 50ml dispensing syringe IV ONE (18:20)
[2017-12-03] MEDS ORDERED: insulin regular, human 10 units/0.1 ml syringe IV ONE (18:20)
[2017-12-03] MEDS ORDERED: sodium bicarbonate (8.4%) 1 mEq/ml syringe IV ONE (18:20)
[2017-12-03] MEDS: famotidine 20mg tablet PO SCH (20:35)
[2017-12-03] MEDS: HYDROcodone/acetaminophen 5mg/325mg tablet PO PRN (21:10)
[2017-12-03 22:00] VITALS: BP 145/75
[2017-12-03 22:54] LABS: ALBUMIN 2.5 G/DL (3.4-5.0); ANION GAP 18 (8-16); BLOOD UREA NITROGEN 94 MG/DL (7-18); BUN/CREATININE RATIO 29.6 (5.4-32.0); CALCIUM 7.7 MG/DL (8.5-10.1); CHLORIDE 94 MMOL/L (99-107); CREATININE 3.18 MG/DL (0.60-1.10); GLUCOSE 257 MG/DL (70-104); POTASSIUM 3.6 MMOL/L (3.5-5.1); SODIUM 135 MMOL/L (135-145); TOTAL CARBON DIOXIDE 23.1 MMOL/L (24-32); eGFR 19 ML/MIN
[2017-12-04 03:00] VITALS: BP 131/64
[2017-12-04 06:36] LABS: BASOPHILS % (AUTO) 0.1 % (0-1); EOSINOPHILS # (AUTO) 0.2 X10'3 (0-0.9); EOSINOPHILS % (AUTO) 1.8 % (0-6); HEMATOCRIT 25.6 % (42.0-52.0); HEMOGLOBIN 8.3 g/dl (14.0-17.9); LYMPHOCYTES # (AUTO) 0.8 X10'3 (1.1-4.8); MEAN CORPUSCULAR HEMOGLOBIN 28.5 PG (27.0-31.0); MEAN CORPUSCULAR HGB CONC 32.4 % (33.0-36.5); MEAN CORPUSCULAR VOLUME 87.8 FL (78-98); MEAN PLATELET VOLUME 10.1 FL (7.4-10.4); MONOCYTES # (AUTO) 0.8 X10'3 (0-0.9); MONOCYTES % (AUTO) 6.9 % (2-12); NEUTROPHILS # (AUTO) 9.8 X10'3 (1.8-7.7); NEUTROPHILS % (AUTO) 84.2 % (42-75); PLATELET COUNT 142 X10'3 (140-440); RED BLOOD COUNT 2.92 X10'6 (4.70-6.10); RED CELL DISTRIBUTION WIDTH 19.5 % (11.5-14.5); WHITE BLOOD COUNT 11.6 X10'3 (4.5-11.0)
[2017-12-04 07:00] VITALS: BP 136/60
[2017-12-04] MEDS: ipratropium/albuterol 3ml nebule NEB SCH ×4 (07:03→20:44)
[2017-12-04 07:16] LABS: ALANINE AMINOTRANSFERASE 457 U/L (12-78); ALBUMIN 2.5 G/DL (3.4-5.0); ALBUMIN/GLOBULIN RATIO 0.7 (1.1-1.5); ALKALINE PHOSPHATASE 374 IU/L (46-116); ANION GAP 15 (8-16); ASPARTATE AMINO TRANSFERASE 212 U/L (10-37); BILIRUBIN,TOTAL 1.5 MG/DL (0.1-1.0); BLOOD UREA NITROGEN 89 MG/DL (7-18); BUN/CREATININE RATIO 29.1 (5.4-32.0); CALCIUM 7.4 MG/DL (8.5-10.1); CHLORIDE 96 MMOL/L (99-107); CREATININE 3.06 MG/DL (0.60-1.10); GLUCOSE 138 MG/DL (70-104); SODIUM 137 MMOL/L (135-145); TOTAL CARBON DIOXIDE 25.6 MMOL/L (24-32); TOTAL PROTEIN 5.9 G/DL (6.4-8.2); eGFR 20 ML/MIN
[2017-12-04 07:24] LABS: POTASSIUM 2.7 MMOL/L (3.5-5.1)
[2017-12-04] MEDS ORDERED: magnesium 4gm in 100ml NS 100 ML IV PRN (07:30)
[2017-12-04] MEDS ORDERED: magnesium Cl slow-release 64mg tablet PO PRN (07:30)
[2017-12-04] MEDS ORDERED: potassium Cl 40MEQ/NS 500ml 500 ML IV PRN ×2 (07:30)
[2017-12-04] MEDS ORDERED: magnesium 2GM in 50ml NS 50 ML IV PRN (07:30)
[2017-12-04] MEDS ORDERED: potassium Cl 20 mEq SR tablet PO PRN (07:30)
[2017-12-04] MEDS: docusate sod 100mg capsule PO SCH ×2 (08:00→20:00)
[2017-12-04] MEDS: buPROPion 75mg tablet PO SCH ×2 (08:03→20:00)
[2017-12-04] MEDS: apixaban 5mg tablet PO SCH ×2 (08:03→20:41)
[2017-12-04] MEDS: LACTOBACILLUS RHAMNOSUS GG 15 billion unit sprinkle caps PO SCH (08:03)
[2017-12-04] MEDS: clopidogrel 75mg tablet PO SCH (08:03)
[2017-12-04] MEDS: furosemide 10 MG/1 ML 10ml inj IV SCH ×2 (08:03→20:42)
[2017-12-04] MEDS: potassium Cl 20 mEq SR tablet PO PRN ×3 (08:06→23:28)
[2017-12-04] MEDS ORDERED: potassium Cl 20 mEq SR tablet PO STA (09:50)
[2017-12-04] MEDS ORDERED: Potassium Cl inj 20 MEQ in normal saline 250ml IV soln 240 ML IV ONE (10:00)
[2017-12-04] MEDS: HYDROcodone/acetaminophen 5mg/325mg tablet PO PRN ×3 (10:36→21:12)
[2017-12-04 11:00] VITALS: BP 133/64
[2017-12-04 16:56] VITALS: BP 140/65
[2017-12-04] MEDS ORDERED: potassium Cl 20 mEq SR tablet PO SCH (17:30)
[2017-12-04 18:00] VITALS: BP 117/59
[2017-12-04] MEDS: famotidine 20mg tablet PO SCH (20:43)
[2017-12-04 22:00] VITALS: BP_SYST 110; BP_SYST 124; BP_DIAS 59; BP_DIAS 66
[2017-12-05] VITALS (9 sets, daily range): BP systolic 118–139; BP diastolic 57–81
[2017-12-05] MEDS: HYDROcodone/acetaminophen 5mg/325mg tablet PO PRN ×4 (04:14→20:46)
[2017-12-05] MEDS: potassium Cl 20 mEq SR tablet PO PRN (04:14)
[2017-12-05 06:49] LABS: BASOPHILS % (AUTO) 0 % (0-1); EOSINOPHILS # (AUTO) 0.2 X10'3 (0-0.9); HEMATOCRIT 22.6 % (42.0-52.0); HEMOGLOBIN 7.4 g/dl (14.0-17.9); LYMPHOCYTES # (AUTO) 0.6 X10'3 (1.1-4.8); LYMPHOCYTES % (AUTO) 5.6 % (21-51); MEAN CORPUSCULAR HEMOGLOBIN 28.3 PG (27.0-31.0); MEAN CORPUSCULAR HGB CONC 32.7 % (33.0-36.5); MEAN CORPUSCULAR VOLUME 86.6 FL (78-98); MEAN PLATELET VOLUME 9.8 FL (7.4-10.4); MONOCYTES # (AUTO) 0.6 X10'3 (0-0.9); MONOCYTES % (AUTO) 6.1 % (2-12); NEUTROPHILS # (AUTO) 8.7 X10'3 (1.8-7.7); NEUTROPHILS % (AUTO) 86.3 % (42-75); PLATELET COUNT 117 X10'3 (140-440); RED BLOOD COUNT 2.61 X10'6 (4.70-6.10); RED CELL DISTRIBUTION WIDTH 19.9 % (11.5-14.5); WHITE BLOOD COUNT 10.1 X10'3 (4.5-11.0)
[2017-12-05] MEDS: ipratropium/albuterol 3ml nebule NEB SCH ×4 (07:00→19:19)
[2017-12-05 07:14] LABS: ALANINE AMINOTRANSFERASE 327 U/L (12-78); ALBUMIN 2.3 G/DL (3.4-5.0); ALBUMIN/GLOBULIN RATIO 0.7 (1.1-1.5); ALKALINE PHOSPHATASE 309 IU/L (46-116); ANION GAP 12 (8-16); ASPARTATE AMINO TRANSFERASE 104 U/L (10-37); BILIRUBIN,TOTAL 1.3 MG/DL (0.1-1.0); BLOOD UREA NITROGEN 63 MG/DL (7-18); BUN/CREATININE RATIO 29.3 (5.4-32.0); CALCIUM 7.3 MG/DL (8.5-10.1); CHLORIDE 100 MMOL/L (99-107); CREATININE 2.15 MG/DL (0.60-1.10); GLUCOSE 142 MG/DL (70-104); MAGNESIUM 1.7 MG/DL (1.5-2.4); POTASSIUM 3.6 MMOL/L (3.5-5.1); SODIUM 137 MMOL/L (135-145); TOTAL CARBON DIOXIDE 24.8 MMOL/L (24-32); TOTAL PROTEIN 5.5 G/DL (6.4-8.2); eGFR 30 ML/MIN
[2017-12-05] MEDS: docusate sod 100mg capsule PO SCH ×2 (08:00→20:00)
[2017-12-05] MEDS: LACTOBACILLUS RHAMNOSUS GG 15 billion unit sprinkle caps PO SCH (08:13)
[2017-12-05] MEDS: apixaban 5mg tablet PO SCH ×2 (08:14→20:36)
[2017-12-05] MEDS: clopidogrel 75mg tablet PO SCH (08:14)
[2017-12-05] MEDS: buPROPion 75mg tablet PO SCH ×2 (08:14→20:00)
[2017-12-05] MEDS: furosemide 10 MG/1 ML 10ml inj IV SCH ×2 (08:15→20:37)
[2017-12-05] MEDS ORDERED: potassium Cl oral solution 20 MEQ/15 ML PO PRN ×2 (08:51)
[2017-12-05] MEDS: potassium Cl oral solution 20 MEQ/15 ML PO SCH (10:01)
[2017-12-05] MEDS: famotidine 20mg tablet PO SCH (20:36)
[2017-12-06] VITALS (8 sets, daily range): BP systolic 111–131; BP diastolic 55–78
[2017-12-06] MEDS: HYDROcodone/acetaminophen 5mg/325mg tablet PO PRN ×4 (00:29→23:00)
[2017-12-06 06:05] LABS: BASOPHILS % (AUTO) 0 % (0-1); EOSINOPHILS # (AUTO) 0.2 X10'3 (0-0.9); EOSINOPHILS % (AUTO) 2.3 % (0-6); HEMATOCRIT 22.4 % (42.0-52.0); HEMOGLOBIN 7.2 g/dl (14.0-17.9); LYMPHOCYTES # (AUTO) 0.7 X10'3 (1.1-4.8); LYMPHOCYTES % (AUTO) 9.5 % (21-51); MEAN CORPUSCULAR HEMOGLOBIN 27.8 PG (27.0-31.0); MEAN CORPUSCULAR VOLUME 86.9 FL (78-98); MEAN PLATELET VOLUME 9.8 FL (7.4-10.4); MONOCYTES # (AUTO) 0.5 X10'3 (0-0.9); MONOCYTES % (AUTO) 6.7 % (2-12); NEUTROPHILS # (AUTO) 6.3 X10'3 (1.8-7.7); NEUTROPHILS % (AUTO) 81.5 % (42-75); PLATELET COUNT 117 X10'3 (140-440); RED BLOOD COUNT 2.57 X10'6 (4.70-6.10); RED CELL DISTRIBUTION WIDTH 19.2 % (11.5-14.5); WHITE BLOOD COUNT 7.7 X10'3 (4.5-11.0)
[2017-12-06 06:23] LABS: ALANINE AMINOTRANSFERASE 260 U/L (12-78); ALBUMIN 2.3 G/DL (3.4-5.0); ALBUMIN/GLOBULIN RATIO 0.7 (1.1-1.5); ALKALINE PHOSPHATASE 297 IU/L (46-116); ANION GAP 8 (8-16); ASPARTATE AMINO TRANSFERASE 77 U/L (10-37); BILIRUBIN,TOTAL 1.5 MG/DL (0.1-1.0); BLOOD UREA NITROGEN 46 MG/DL (7-18); BUN/CREATININE RATIO 28.6 (5.4-32.0); CALCIUM 7.8 MG/DL (8.5-10.1); CHLORIDE 101 MMOL/L (99-107); CREATININE 1.61 MG/DL (0.60-1.10); GLUCOSE 130 MG/DL (70-104); MAGNESIUM 1.5 MG/DL (1.5-2.4); SODIUM 135 MMOL/L (135-145); TOTAL CARBON DIOXIDE 26.1 MMOL/L (24-32); TOTAL PROTEIN 5.5 G/DL (6.4-8.2); eGFR 43 ML/MIN
[2017-12-06 06:54] LABS: POTASSIUM 2.8 MMOL/L (3.5-5.1)
[2017-12-06] MEDS: LACTOBACILLUS RHAMNOSUS GG 15 billion unit sprinkle caps PO SCH (07:10)
[2017-12-06] MEDS: clopidogrel 75mg tablet PO SCH (07:10)
[2017-12-06] MEDS: furosemide 10 MG/1 ML 10ml inj IV SCH ×2 (07:10→22:53)
[2017-12-06] MEDS: buPROPion 75mg tablet PO SCH ×2 (07:10→22:54)
[2017-12-06] MEDS: apixaban 5mg tablet PO SCH ×2 (07:10→22:54)
[2017-12-06] MEDS: docusate sod 100mg capsule PO SCH ×2 (07:17→22:54)
[2017-12-06] MEDS: ipratropium/albuterol 3ml nebule NEB SCH ×4 (08:34→20:20)
[2017-12-06] MEDS: potassium Cl oral solution 20 MEQ/15 ML PO SCH (09:17)
[2017-12-06] MEDS: magnesium hydroxide 30ml (MOM) UD suspension PO PRN (09:17)
[2017-12-06] MEDS: potassium Cl 20 mEq SR tablet PO SCH ×2 (09:25→17:25)
[2017-12-06] MEDS ORDERED: magnesium Cl slow-release 64mg tablet PO PRN (10:45)
[2017-12-06] MEDS ORDERED: potassium Cl 20 mEq SR tablet PO PRN ×4 (10:45→11:03)
[2017-12-06] MEDS ORDERED: potassium Cl 40MEQ/NS 500ml 500 ML IV PRN ×2 (10:45)
[2017-12-06] MEDS ORDERED: magnesium 2GM in 50ml NS 50 ML IV PRN (10:45)
[2017-12-06] MEDS ORDERED: magnesium 4gm in 100ml NS 100 ML IV PRN (10:45)
[2017-12-06] MEDS: famotidine 20mg tablet PO SCH (21:00)
[2017-12-07] VITALS (8 sets, daily range): BP systolic 103–134; BP diastolic 58–85
[2017-12-07] MEDS: ondansetron/PF 4mg/2ml inj IV PRN (01:36)
[2017-12-07 06:48] LABS: % IRON SATURATION 8 % (11-46); IRON 27 UG/DL (53-167); TOTAL IRON BINDING CAPACITY 349 UG/DL (259-388)
[2017-12-07 06:50] LABS: ALANINE AMINOTRANSFERASE 260 U/L (12-78); ALBUMIN 2.6 G/DL (3.4-5.0); ALBUMIN/GLOBULIN RATIO 0.7 (1.1-1.5); ALKALINE PHOSPHATASE 352 IU/L (46-116); ANION GAP 11 (8-16); ASPARTATE AMINO TRANSFERASE 94 U/L (10-37); BILIRUBIN,TOTAL 1.5 MG/DL (0.1-1.0); BLOOD UREA NITROGEN 45 MG/DL (7-18); BUN/CREATININE RATIO 26.5 (5.4-32.0); CALCIUM 8.3 MG/DL (8.5-10.1); CHLORIDE 101 MMOL/L (99-107); GLUCOSE 136 MG/DL (70-104); MAGNESIUM 2.1 MG/DL (1.5-2.4); POTASSIUM 5.5 MMOL/L (3.5-5.1); SODIUM 134 MMOL/L (135-145); TOTAL CARBON DIOXIDE 21.6 MMOL/L (24-32); TOTAL PROTEIN 6.2 G/DL (6.4-8.2); eGFR 40 ML/MIN
[2017-12-07 07:15] LABS: BASOPHILS % (AUTO) 0 % (0-1); EOSINOPHILS # (AUTO) 0.2 X10'3 (0-0.9); EOSINOPHILS % (AUTO) 1.7 % (0-6); HEMOGLOBIN 8.3 g/dl (14.0-17.9); LYMPHOCYTES # (AUTO) 0.6 X10'3 (1.1-4.8); LYMPHOCYTES % (AUTO) 6.8 % (21-51); MEAN CORPUSCULAR HEMOGLOBIN 28.1 PG (27.0-31.0); MEAN CORPUSCULAR VOLUME 87.8 FL (78-98); MEAN PLATELET VOLUME 10.2 FL (7.4-10.4); MONOCYTES # (AUTO) 0.6 X10'3 (0-0.9); MONOCYTES % (AUTO) 6.1 % (2-12); NEUTROPHILS # (AUTO) 7.7 X10'3 (1.8-7.7); NEUTROPHILS % (AUTO) 85.4 % (42-75); PLATELET COUNT 145 X10'3 (140-440); RED BLOOD COUNT 2.96 X10'6 (4.70-6.10); RED CELL DISTRIBUTION WIDTH 18.6 % (11.5-14.5)
[2017-12-07] MEDS ORDERED: sodium polystyrene sulfonate 15gm/60ml oral suspension PO STA (07:58)
[2017-12-07] MEDS: docusate sod 100mg capsule PO SCH ×2 (08:00→21:33)
[2017-12-07] MEDS: furosemide 10 MG/1 ML 10ml inj IV SCH (08:10)
[2017-12-07] MEDS: clopidogrel 75mg tablet PO SCH (08:10)
[2017-12-07] MEDS: apixaban 5mg tablet PO SCH ×2 (08:10→21:33)
[2017-12-07] MEDS: buPROPion 75mg tablet PO SCH ×2 (08:10→21:33)
[2017-12-07] MEDS: LACTOBACILLUS RHAMNOSUS GG 15 billion unit sprinkle caps PO SCH (08:10)
[2017-12-07] MEDS: HYDROcodone/acetaminophen 5mg/325mg tablet PO PRN ×4 (08:30→22:59)
[2017-12-07] MEDS: ipratropium/albuterol 3ml nebule NEB SCH ×4 (09:05→19:25)
[2017-12-07 16:34] LABS: OCCULT BLOOD STOOL POSITIVE (Neg)
[2017-12-07] MEDS ORDERED: nitroGLYCERIN 0.4mg SUBLingual tab SL PRN (16:55)
[2017-12-07] MEDS: ferrous sulfate 325mg tablet PO SCH (17:24)
[2017-12-07] MEDS: furosemide 20 MG/2 ML vial IV SCH ×2 (17:25→23:00)
[2017-12-07] MEDS ORDERED: ferrous gluconate 324mg tablet PO SCH (17:30)
[2017-12-07] MEDS: famotidine 20mg tablet PO SCH (21:33)
[2017-12-08] VITALS (8 sets, daily range): BP systolic 117–134; BP diastolic 68–82
[2017-12-08 06:00] LABS: BASOPHILS % (AUTO) 0.1 % (0-1); EOSINOPHILS # (AUTO) 0.2 X10'3 (0-0.9); EOSINOPHILS % (AUTO) 1.9 % (0-6); HEMATOCRIT 24.9 % (42.0-52.0); LYMPHOCYTES % (AUTO) 9.9 % (21-51); MEAN CORPUSCULAR HEMOGLOBIN 27.9 PG (27.0-31.0); MEAN CORPUSCULAR HGB CONC 32.2 % (33.0-36.5); MEAN CORPUSCULAR VOLUME 86.5 FL (78-98); MEAN PLATELET VOLUME 10.4 FL (7.4-10.4); MONOCYTES # (AUTO) 0.6 X10'3 (0-0.9); MONOCYTES % (AUTO) 6.5 % (2-12); NEUTROPHILS % (AUTO) 81.6 % (42-75); PLATELET COUNT 168 X10'3 (140-440); RED BLOOD COUNT 2.87 X10'6 (4.70-6.10); RED CELL DISTRIBUTION WIDTH 19.3 % (11.5-14.5); WHITE BLOOD COUNT 9.9 X10'3 (4.5-11.0)
[2017-12-08 06:34] LABS: ALANINE AMINOTRANSFERASE 342 U/L (12-78); ALBUMIN 2.6 G/DL (3.4-5.0); ALBUMIN/GLOBULIN RATIO 0.8 (1.1-1.5); ALKALINE PHOSPHATASE 437 IU/L (46-116); ANION GAP 13 (8-16); ASPARTATE AMINO TRANSFERASE 163 U/L (10-37); BILIRUBIN,TOTAL 1.7 MG/DL (0.1-1.0); BLOOD UREA NITROGEN 50 MG/DL (7-18); BUN/CREATININE RATIO 26.7 (5.4-32.0); CALCIUM 8.3 MG/DL (8.5-10.1); CHLORIDE 97 MMOL/L (99-107); CREATININE 1.87 MG/DL (0.60-1.10); GLUCOSE 136 MG/DL (70-104); POTASSIUM 4.5 MMOL/L (3.5-5.1); SODIUM 132 MMOL/L (135-145); TOTAL CARBON DIOXIDE 21.8 MMOL/L (24-32); TROPONIN I 0.05 NG/ML (0.0-0.05); eGFR 36 ML/MIN
[2017-12-08] MEDS: ferrous sulfate 325mg tablet PO SCH ×3 (07:53→16:42)
[2017-12-08] MEDS: clopidogrel 75mg tablet PO SCH ×2 (07:53→09:13)
[2017-12-08] MEDS: furosemide 20 MG/2 ML vial IV SCH ×3 (07:53→16:42)
[2017-12-08] MEDS: LACTOBACILLUS RHAMNOSUS GG 15 billion unit sprinkle caps PO SCH (07:53)
[2017-12-08] MEDS: apixaban 5mg tablet PO SCH ×3 (07:53→20:44)
[2017-12-08] MEDS: buPROPion 75mg tablet PO SCH ×2 (07:53→20:42)
[2017-12-08] MEDS: ondansetron/PF 4mg/2ml inj IV PRN ×2 (07:57→14:43)
[2017-12-08] MEDS: HYDROcodone/acetaminophen 5mg/325mg tablet PO PRN ×3 (07:58→20:44)
[2017-12-08] MEDS: docusate sod 100mg capsule PO SCH ×2 (08:00→20:44)
[2017-12-08] MEDS: ipratropium/albuterol 3ml nebule NEB SCH ×4 (08:20→19:21)
[2017-12-08] MEDS: mag hydrox/Alum hydrox/simeth 30ml oral suspension PO PRN (12:41)
[2017-12-08] MEDS: famotidine 20mg tablet PO SCH (20:43)
[2017-12-09] VITALS (7 sets, daily range): BP systolic 99–126; BP diastolic 54–72
[2017-12-09] MEDS: furosemide 20 MG/2 ML vial IV SCH ×3 (00:28→17:45)
[2017-12-09] MEDS: HYDROcodone/acetaminophen 5mg/325mg tablet PO PRN ×3 (03:33→20:32)
[2017-12-09 05:34] LABS: ALBUMIN 2.5 G/DL (3.4-5.0); ANION GAP 13 (8-16); BLOOD UREA NITROGEN 57 MG/DL (7-18); BUN/CREATININE RATIO 26.9 (5.4-32.0); CALCIUM 8.1 MG/DL (8.5-10.1); CHLORIDE 97 MMOL/L (99-107); CREATININE 2.12 MG/DL (0.60-1.10); GLUCOSE 116 MG/DL (70-104); POTASSIUM 3.9 MMOL/L (3.5-5.1); SODIUM 132 MMOL/L (135-145); TOTAL CARBON DIOXIDE 22.4 MMOL/L (24-32); eGFR 31 ML/MIN
[2017-12-09 06:11] LABS: BASOPHILS % (AUTO) 0 % (0-1); EOSINOPHILS # (AUTO) 0.2 X10'3 (0-0.9); EOSINOPHILS % (AUTO) 1.6 % (0-6); HEMATOCRIT 23.5 % (42.0-52.0); HEMOGLOBIN 7.6 g/dl (14.0-17.9); LYMPHOCYTES # (AUTO) 0.7 X10'3 (1.1-4.8); LYMPHOCYTES % (AUTO) 7.7 % (21-51); MEAN CORPUSCULAR HEMOGLOBIN 27.8 PG (27.0-31.0); MEAN CORPUSCULAR HGB CONC 32.4 % (33.0-36.5); MEAN CORPUSCULAR VOLUME 85.9 FL (78-98); MEAN PLATELET VOLUME 10.4 FL (7.4-10.4); MONOCYTES # (AUTO) 0.6 X10'3 (0-0.9); MONOCYTES % (AUTO) 6.7 % (2-12); PLATELET COUNT 187 X10'3 (140-440); RED BLOOD COUNT 2.73 X10'6 (4.70-6.10); RED CELL DISTRIBUTION WIDTH 19.1 % (11.5-14.5); WHITE BLOOD COUNT 9.5 X10'3 (4.5-11.0)
[2017-12-09 06:49] LABS: ANISOCYTOSIS 2+; MICROCYTOSIS 1+; PLATELET ESTIMATE NORMAL; TOTAL CELLS COUNTED 100
[2017-12-09 06:50] LABS: POLYCHROMASIA 2+; STOMATOCYTES 1+
[2017-12-09] MEDS: ipratropium/albuterol 3ml nebule NEB SCH ×4 (07:56→20:57)
[2017-12-09] MEDS: LACTOBACILLUS RHAMNOSUS GG 15 billion unit sprinkle caps PO SCH (08:03)
[2017-12-09] MEDS: buPROPion 75mg tablet PO SCH ×2 (08:04→20:32)
[2017-12-09] MEDS: apixaban 5mg tablet PO SCH ×2 (08:04→20:33)
[2017-12-09] MEDS: clopidogrel 75mg tablet PO SCH (08:04)
[2017-12-09] MEDS: ferrous sulfate 325mg tablet PO SCH ×3 (08:04→17:45)
[2017-12-09] MEDS: docusate sod 100mg capsule PO SCH ×2 (08:05→20:33)
[2017-12-09] MEDS: metoprolol tartrate 12.5mg (1/2 tablet) PO SCH ×2 (12:24→20:33)
[2017-12-09] MEDS: famotidine 20mg tablet PO SCH (20:32)
[2017-12-10] MEDS: furosemide 20 MG/2 ML vial IV SCH ×3 (00:09→16:00)
[2017-12-10] MEDS: HYDROcodone/acetaminophen 5mg/325mg tablet PO PRN ×4 (01:34→19:11)
[2017-12-10 02:00] VITALS: BP 103/78
[2017-12-10 06:35] LABS: BASOPHILS % (AUTO) 0 % (0-1); EOSINOPHILS # (AUTO) 0.2 X10'3 (0-0.9); EOSINOPHILS % (AUTO) 2.3 % (0-6); HEMATOCRIT 25.6 % (42.0-52.0); HEMOGLOBIN 8.2 g/dl (14.0-17.9); LYMPHOCYTES % (AUTO) 10.1 % (21-51); MEAN CORPUSCULAR HEMOGLOBIN 27.7 PG (27.0-31.0); MEAN CORPUSCULAR HGB CONC 31.9 % (33.0-36.5); MEAN CORPUSCULAR VOLUME 86.8 FL (78-98); MEAN PLATELET VOLUME 10.9 FL (7.4-10.4); MONOCYTES # (AUTO) 0.5 X10'3 (0-0.9); MONOCYTES % (AUTO) 5.4 % (2-12); NEUTROPHILS # (AUTO) 8.1 X10'3 (1.8-7.7); NEUTROPHILS % (AUTO) 82.2 % (42-75); PLATELET COUNT 219 X10'3 (140-440); RED BLOOD COUNT 2.95 X10'6 (4.70-6.10); RED CELL DISTRIBUTION WIDTH 19.3 % (11.5-14.5); WHITE BLOOD COUNT 9.9 X10'3 (4.5-11.0)
[2017-12-10] MEDS: ipratropium/albuterol 3ml nebule NEB SCH ×4 (06:39→20:17)
[2017-12-10 06:55] LABS: ALANINE AMINOTRANSFERASE 500 U/L (12-78); ALBUMIN 2.8 G/DL (3.4-5.0); ALBUMIN/GLOBULIN RATIO 0.8 (1.1-1.5); ALKALINE PHOSPHATASE 659 IU/L (46-116); ANION GAP 14 (8-16); ASPARTATE AMINO TRANSFERASE 286 U/L (10-37); BILIRUBIN,TOTAL 2.5 MG/DL (0.1-1.0); BLOOD UREA NITROGEN 73 MG/DL (7-18); BUN/CREATININE RATIO 28.7 (5.4-32.0); CALCIUM 8.7 MG/DL (8.5-10.1); CHLORIDE 93 MMOL/L (99-107); CREATININE 2.54 MG/DL (0.60-1.10); GLUCOSE 112 MG/DL (70-104); POTASSIUM 4.2 MMOL/L (3.5-5.1); SODIUM 131 MMOL/L (135-145); TOTAL CARBON DIOXIDE 23.6 MMOL/L (24-32); TOTAL PROTEIN 6.5 G/DL (6.4-8.2); eGFR 25 ML/MIN
[2017-12-10 07:00] VITALS: BP 116/60
[2017-12-10] MEDS: LACTOBACILLUS RHAMNOSUS GG 15 billion unit sprinkle caps PO SCH (09:14)
[2017-12-10] MEDS: ferrous sulfate 325mg tablet PO SCH ×3 (09:15→17:26)
[2017-12-10] MEDS: docusate sod 100mg capsule PO SCH ×2 (09:15→20:47)
[2017-12-10] MEDS: clopidogrel 75mg tablet PO SCH (09:15)
[2017-12-10] MEDS: metoprolol tartrate 12.5mg (1/2 tablet) PO SCH ×2 (09:15→20:47)
[2017-12-10] MEDS: apixaban 5mg tablet PO SCH ×2 (09:15→20:47)
[2017-12-10] MEDS: buPROPion 75mg tablet PO SCH ×2 (09:15→20:47)
[2017-12-10] MEDS ORDERED: methylPREDNISolone sod succ 125mg/2ml vial IV ONE (10:15)
[2017-12-10 11:00] VITALS: BP 102/57
[2017-12-10] MEDS: methylPREDNISolone sod succ 125mg/2ml vial IV SCH ×2 (14:26→20:55)
[2017-12-10 15:00] VITALS: BP 105/55
[2017-12-10 18:00] VITALS: BP 132/59
[2017-12-10] MEDS: famotidine 20mg tablet PO SCH (20:47)
[2017-12-10 22:00] VITALS: BP 105/58
[2017-12-11] VITALS (7 sets, daily range): BP systolic 91–113; BP diastolic 52–63
[2017-12-11] MEDS: furosemide 20 MG/2 ML vial IV SCH ×3 (00:18→15:45)
[2017-12-11] MEDS: methylPREDNISolone sod succ 125mg/2ml vial IV SCH ×4 (01:28→19:15)
[2017-12-11 05:45] LABS: BASOPHILS % (AUTO) 0 % (0-1); EOSINOPHILS # (AUTO) 0.1 X10'3 (0-0.9); EOSINOPHILS % (AUTO) 1.9 % (0-6); HEMATOCRIT 25.9 % (42.0-52.0); HEMOGLOBIN 8.2 g/dl (14.0-17.9); LYMPHOCYTES # (AUTO) 0.3 X10'3 (1.1-4.8); LYMPHOCYTES % (AUTO) 4.8 % (21-51); MEAN CORPUSCULAR HEMOGLOBIN 27.8 PG (27.0-31.0); MEAN CORPUSCULAR HGB CONC 31.5 % (33.0-36.5); MEAN CORPUSCULAR VOLUME 88.3 FL (78-98); MEAN PLATELET VOLUME 11.1 FL (7.4-10.4); MONOCYTES # (AUTO) 0.2 X10'3 (0-0.9); MONOCYTES % (AUTO) 2.3 % (2-12); NEUTROPHILS # (AUTO) 6.6 X10'3 (1.8-7.7); PLATELET COUNT 203 X10'3 (140-440); RED BLOOD COUNT 2.93 X10'6 (4.70-6.10); RED CELL DISTRIBUTION WIDTH 20.2 % (11.5-14.5); WHITE BLOOD COUNT 7.2 X10'3 (4.5-11.0)
[2017-12-11 06:12] LABS: ALANINE AMINOTRANSFERASE 684 U/L (12-78); ALBUMIN 2.8 G/DL (3.4-5.0); ALBUMIN/GLOBULIN RATIO 0.8 (1.1-1.5); ALKALINE PHOSPHATASE 652 IU/L (46-116); ANION GAP 19 (8-16); ASPARTATE AMINO TRANSFERASE 421 U/L (10-37); BILIRUBIN,TOTAL 3.1 MG/DL (0.1-1.0); BLOOD UREA NITROGEN 88 MG/DL (7-18); BUN/CREATININE RATIO 27.6 (5.4-32.0); CALCIUM 8.9 MG/DL (8.5-10.1); CHLORIDE 94 MMOL/L (99-107); CREATININE 3.19 MG/DL (0.60-1.10); GLUCOSE 107 MG/DL (70-104); POTASSIUM 4.6 MMOL/L (3.5-5.1); SODIUM 131 MMOL/L (135-145); TOTAL CARBON DIOXIDE 18.5 MMOL/L (24-32); TOTAL PROTEIN 6.3 G/DL (6.4-8.2); eGFR 19 ML/MIN
[2017-12-11 06:43] LABS: LYMPHOCYTES % (MANUAL) 3 % (21-51); MONOCYTES % (MANUAL) 3 % (2-12); NEUTROPHILS % (MANUAL) 94 % (42-75); TOTAL CELLS COUNTED 100
[2017-12-11 06:44] LABS: ANISOCYTOSIS 2+; BURR CELLS 1+; HYPOCHROMASIA 1+; LARGE PLATELETS FEW; NUCLEATED RED BLOOD CELLS 2 /100WBC (0-0); PLATELET ESTIMATE NORMAL; POLYCHROMASIA 1+
[2017-12-11 06:45] LABS: ELLIPTOCYTES 1+
[2017-12-11] MEDS: docusate sod 100mg capsule PO SCH ×2 (07:41→19:16)
[2017-12-11] MEDS: metoprolol tartrate 12.5mg (1/2 tablet) PO SCH ×2 (07:41→19:20)
[2017-12-11] MEDS: apixaban 5mg tablet PO SCH ×2 (07:41→19:15)
[2017-12-11] MEDS: LACTOBACILLUS RHAMNOSUS GG 15 billion unit sprinkle caps PO SCH (07:41)
[2017-12-11] MEDS: buPROPion 75mg tablet PO SCH ×2 (07:42→19:16)
[2017-12-11] MEDS: clopidogrel 75mg tablet PO SCH (07:42)
[2017-12-11] MEDS: ferrous sulfate 325mg tablet PO SCH ×3 (07:42→17:26)
[2017-12-11] MEDS: HYDROcodone/acetaminophen 5mg/325mg tablet PO PRN ×2 (07:47→15:11)
[2017-12-11] MEDS ORDERED: piperacillin/tazo 3.375gm/50ml 50 ML IV SCH (08:30)
[2017-12-11] MEDS ORDERED: levoFLOXACIN-Levaquin 750MG/D5 150 ML IV SCH ×2 (08:30→14:05)
[2017-12-11] MEDS: ipratropium/albuterol 3ml nebule NEB SCH ×4 (08:30→18:57)
[2017-12-11 10:10] LABS: ABG BASE EXCESS -8.5 mmol/L (-2.0-3.0); ABG HCO3 15.7 mmol/L (22.0-26.0); ABG OXYGEN SATURATION 97.2 % (95-98); ABG PCO2 (T) 27.3 mmHg (35.0-48.0); ABG PH (T) 7.377 (7.350-7.450); ABG PO2 (T) 102.4 mmHg (83-108); ALLEN'S TEST Positive; FCOHb 0.3 % (0.5-1.5); FLOW 12 L/min; FMetHb 0.3 % (0.3-1.12); FO2Hb 96.6 % (94-100); PATIENT TEMPERATURE 36.6; TOTAL HEMOGLOBIN 8.2 G/dl (14.0-18.0)
[2017-12-11] MEDS: mag hydrox/Alum hydrox/simeth 30ml oral suspension PO PRN (12:30)
[2017-12-11] MEDS: piperacillin/tazobactam inj. 2.25 GM in normal saline 50ml IV IV SCH (20:24)
[2017-12-11] MEDS: famotidine 20mg tablet PO SCH (20:24)
[2017-12-12] VITALS (7 sets, daily range): BP systolic 97–120; BP diastolic 49–70
[2017-12-12] MEDS: furosemide 20 MG/2 ML vial IV SCH ×2 (00:14→09:45)
[2017-12-12] MEDS: piperacillin/tazobactam inj. 2.25 GM in normal saline 50ml IV IV SCH ×4 (02:36→20:42)
[2017-12-12] MEDS: methylPREDNISolone sod succ 125mg/2ml vial IV SCH ×4 (02:36→20:41)
[2017-12-12 06:11] LABS: BASOPHILS % (AUTO) 0 % (0-1); EOSINOPHILS # (AUTO) 0.1 X10'3 (0-0.9); EOSINOPHILS % (AUTO) 1.2 % (0-6); HEMATOCRIT 23.5 % (42.0-52.0); HEMOGLOBIN 7.5 g/dl (14.0-17.9); LYMPHOCYTES # (AUTO) 0.2 X10'3 (1.1-4.8); LYMPHOCYTES % (AUTO) 2.6 % (21-51); MEAN CORPUSCULAR HEMOGLOBIN 27.8 PG (27.0-31.0); MEAN CORPUSCULAR HGB CONC 31.8 % (33.0-36.5); MEAN CORPUSCULAR VOLUME 87.4 FL (78-98); MONOCYTES # (AUTO) 0.2 X10'3 (0-0.9); MONOCYTES % (AUTO) 3.7 % (2-12); NEUTROPHILS % (AUTO) 92.5 % (42-75); PLATELET COUNT 167 X10'3 (140-440); RED BLOOD COUNT 2.68 X10'6 (4.70-6.10); RED CELL DISTRIBUTION WIDTH 20.5 % (11.5-14.5); WHITE BLOOD COUNT 6.4 X10'3 (4.5-11.0)
[2017-12-12 06:31] LABS: ALANINE AMINOTRANSFERASE 586 U/L (12-78); ALBUMIN 2.5 G/DL (3.4-5.0); ALBUMIN/GLOBULIN RATIO 0.8 (1.1-1.5); ALKALINE PHOSPHATASE 611 IU/L (46-116); ANION GAP 15 (8-16); ASPARTATE AMINO TRANSFERASE 272 U/L (10-37); BILIRUBIN,TOTAL 2.7 MG/DL (0.1-1.0); BLOOD UREA NITROGEN 95 MG/DL (7-18); BUN/CREATININE RATIO 29.7 (5.4-32.0); CALCIUM 8.3 MG/DL (8.5-10.1); CHLORIDE 97 MMOL/L (99-107); GLUCOSE 137 MG/DL (70-104); POTASSIUM 3.4 MMOL/L (3.5-5.1); SODIUM 135 MMOL/L (135-145); TOTAL CARBON DIOXIDE 22.9 MMOL/L (24-32); TOTAL PROTEIN 5.6 G/DL (6.4-8.2); eGFR 19 ML/MIN
[2017-12-12] MEDS: ipratropium/albuterol 3ml nebule NEB SCH ×4 (07:18→19:53)
[2017-12-12] MEDS: metoprolol tartrate 12.5mg (1/2 tablet) PO SCH ×2 (09:45→20:39)
[2017-12-12] MEDS: docusate sod 100mg capsule PO SCH ×2 (09:45→20:38)
[2017-12-12] MEDS: LACTOBACILLUS RHAMNOSUS GG 15 billion unit sprinkle caps PO SCH (09:50)
[2017-12-12] MEDS: ferrous sulfate 325mg tablet PO SCH ×3 (09:52→16:55)
[2017-12-12] MEDS: apixaban 5mg tablet PO SCH ×2 (09:52→20:41)
[2017-12-12] MEDS: clopidogrel 75mg tablet PO SCH (09:52)
[2017-12-12] MEDS: buPROPion 75mg tablet PO SCH ×2 (09:53→20:39)
[2017-12-12] MEDS: HYDROcodone/acetaminophen 5mg/325mg tablet PO PRN ×2 (10:02→20:38)
[2017-12-12] MEDS: vancomycin/NS 1 GM ADD-VANTAGE 250 ML IV SCH (10:47)
[2017-12-12] MEDS ORDERED: magnesium 4gm in 100ml NS 100 ML IV PRN (12:05)
[2017-12-12] MEDS ORDERED: potassium Cl 40MEQ/NS 500ml 500 ML IV PRN ×2 (12:05)
[2017-12-12] MEDS ORDERED: magnesium 2GM in 50ml NS 50 ML IV PRN (12:05)
[2017-12-12] MEDS ORDERED: magnesium Cl slow-release 64mg tablet PO PRN (12:05)
[2017-12-12] MEDS: potassium Cl 20 mEq SR tablet PO PRN ×3 (12:25→20:38)
[2017-12-12] MEDS: famotidine 20mg tablet PO SCH (20:39)
[2017-12-12] MEDS: furosemide 40mg/4ml inj IV SCH (20:41)
[2017-12-13] MEDS: methylPREDNISolone sod succ 125mg/2ml vial IV SCH ×2 (01:52→07:31)
[2017-12-13] MEDS: piperacillin/tazobactam inj. 2.25 GM in normal saline 50ml IV IV SCH ×3 (01:52→13:54)
[2017-12-13 03:00] VITALS: BP 111/55
[2017-12-13 06:00] VITALS: BP 110/67
[2017-12-13 06:45] LABS: ALANINE AMINOTRANSFERASE 449 U/L (12-78); ALBUMIN 2.5 G/DL (3.4-5.0); ALBUMIN/GLOBULIN RATIO 0.8 (1.1-1.5); ALKALINE PHOSPHATASE 592 IU/L (46-116); ANION GAP 13 (8-16); ASPARTATE AMINO TRANSFERASE 149 U/L (10-37); BILIRUBIN,TOTAL 2.2 MG/DL (0.1-1.0); BLOOD UREA NITROGEN 86 MG/DL (7-18); BUN/CREATININE RATIO 33.1 (5.4-32.0); CALCIUM 8.5 MG/DL (8.5-10.1); CHLORIDE 100 MMOL/L (99-107); GLUCOSE 171 MG/DL (70-104); MAGNESIUM 2.2 MG/DL (1.5-2.4); SODIUM 140 MMOL/L (135-145); TOTAL CARBON DIOXIDE 26.6 MMOL/L (24-32); TOTAL PROTEIN 5.7 G/DL (6.4-8.2); eGFR 24 ML/MIN
[2017-12-13] MEDS: furosemide 40mg/4ml inj IV SCH (07:31)
[2017-12-13] MEDS: metoprolol tartrate 12.5mg (1/2 tablet) PO SCH (07:31)
[2017-12-13] MEDS: clopidogrel 75mg tablet PO SCH (07:31)
[2017-12-13 07:32] LABS: POTASSIUM 2.4 MMOL/L (3.5-5.1)
[2017-12-13] MEDS: docusate sod 100mg capsule PO SCH (07:32)
[2017-12-13] MEDS: buPROPion 75mg tablet PO SCH (07:32)
[2017-12-13] MEDS: LACTOBACILLUS RHAMNOSUS GG 15 billion unit sprinkle caps PO SCH (07:32)
[2017-12-13] MEDS: apixaban 5mg tablet PO SCH (07:32)
[2017-12-13] MEDS: potassium Cl 20 mEq SR tablet PO PRN ×3 (07:35→11:11)
[2017-12-13] MEDS: ipratropium/albuterol 3ml nebule NEB SCH ×3 (08:38→15:00)
[2017-12-13] MEDS: mag hydrox/Alum hydrox/simeth 30ml oral suspension PO PRN (08:45)
[2017-12-13] MEDS: magnesium hydroxide 30ml (MOM) UD suspension PO PRN (08:48)
[2017-12-13] MEDS: ferrous sulfate 325mg tablet PO SCH ×3 (08:52→17:30)
[2017-12-13] MEDS: vancomycin/NS 1 GM ADD-VANTAGE 250 ML IV SCH (10:21)
[2017-12-13 11:00] VITALS: BP 122/67
[2017-12-13] MEDS ORDERED: levoFLOXACIN 750MG TABLET PO SCH (11:00)
[2017-12-13] MEDS: HYDROcodone/acetaminophen 5mg/325mg tablet PO PRN (13:55)
[2017-12-13] MEDS ORDERED: predniSONE 20 mg tablet PO SCH (14:00)
[2017-12-13] MEDS ORDERED: QUEtiapine 25mg tablet PO SCH (20:00)
[2017-12-14] MEDS ORDERED: VANCOMYCIN LEVEL IV ONE (09:30)
== END 2017-12-13 18:30 | disposition left against medical advice (07) | DRG 291 ==
LOC: ER 22:25 → ED HOLD 12-03 01:18 → PCU 3S 12-03 04:52 → CMPBEDREQ 12-04 19:55
PROVIDERS: ADMIT Internal Medicine; ATTEND Family Medicine
PROC: 5A09357 Assistance with Respiratory Ventilation, Less than 24 Consecutive Hours, Continuous Positive Airway Pressure (ICD-10-PCS; principal; 2017-12-02)
PROC: 5A09357 Assistance with Respiratory Ventilation, Less than 24 Consecutive Hours, Continuous Positive Airway Pressure (ICD-10-PCS; 2017-12-07)
DX: I13.0 Hypertensive heart and chronic kidney disease with heart failure and stage 1 through stage 4 chronic kidney disease, or unspecified chronic kidney disease (principal); A41.9 Sepsis, unspecified organism; J96.01 Acute respiratory failure with hypoxia; N17.9 Acute kidney failure, unspecified; E87.5 Hyperkalemia; E87.1 Hypo-osmolality and hyponatremia; N18.3 Chronic kidney disease, stage 3 (moderate); D50.9 Iron deficiency anemia, unspecified; F17.290 Nicotine dependence, other tobacco product, uncomplicated; I50.43 Acute on chronic combined systolic (congestive) and diastolic (congestive) heart failure; J44.1 Chronic obstructive pulmonary disease with (acute) exacerbation; I48.91 Unspecified atrial fibrillation; K76.1 Chronic passive congestion of liver; D63.1 Anemia in chronic kidney disease; E87.6 Hypokalemia; E78.00 Pure hypercholesterolemia, unspecified; I25.10 Atherosclerotic heart disease of native coronary artery without angina pectoris; K21.9 Gastro-esophageal reflux disease without esophagitis; F41.9 Anxiety disorder, unspecified; G89.29 Other chronic pain; K57.90 Diverticulosis of intestine, part unspecified, without perforation or abscess without bleeding; M54.9 Dorsalgia, unspecified; R74.0 Nonspecific elevation of levels of transaminase and lactic acid dehydrogenase [LDH]; R94.5 Abnormal results of liver function studies; Z53.21 Procedure and treatment not carried out due to patient leaving prior to being seen by health care provider; Z90.49 Acquired absence of other specified parts of digestive tract; Z88.8 Allergy status to other drugs, medicaments and biological substances; Z79.01 Long term (current) use of anticoagulants; Z79.02 Long term (current) use of antithrombotics/antiplatelets; Z79.899 Other long term (current) drug therapy
CPT/HCPCS: 36415; 36600; 71045; 76700; 80048; 80053; 82272; 82803; 83540; 83550; 83605; 83735; 83880; 84132; 84145; 84484; 85018; 85025; 85610; 85730; 87040; 87070; 93005; 94640; 94660; 94760; 96374; 97110; 97161; 97530; 99285; A6212; A6213; A6250; A6257; A6258; J1815; J1940; J1956; J2270; J2405; J2543; J2930; J3370; J3480; J7030; J7512

== ENCOUNTER 2017-12-14 06:46 | Inpatient (IN) | payer OTHER, MEDICARE ==
[~2017-12-14] VITALS: Ht 180.3 cm; Wt 75.0 kg
[2017-12-14] VITALS (12 sets, daily range): BP systolic 103–130; BP diastolic 58–81
[~2017-12-14 06:46] MED LIST changes: -AZI25OT PO
[2017-12-14] MEDS ORDERED: normal saline 1000ml 1,000 ML IV ONE (07:07)
[2017-12-14] MEDS ORDERED: nitroGLYCERIN 0.2mg/hour patch TD ONE (07:10)
[2017-12-14 07:49] LABS: BASOPHILS % (AUTO) 0.2 % (0-1); EOSINOPHILS % (AUTO) 0.1 % (0-6); HEMATOCRIT 23.1 % (42.0-52.0); HEMOGLOBIN 7.7 g/dl (14.0-17.9); LYMPHOCYTES # (AUTO) 0.2 X10'3 (1.1-4.8); LYMPHOCYTES % (AUTO) 2.3 % (21-51); MEAN CORPUSCULAR HEMOGLOBIN 28.5 PG (27.0-31.0); MEAN CORPUSCULAR HGB CONC 33.2 % (33.0-36.5); MEAN CORPUSCULAR VOLUME 85.9 FL (78-98); MEAN PLATELET VOLUME 10.2 FL (7.4-10.4); MONOCYTES # (AUTO) 0.5 X10'3 (0-0.9); MONOCYTES % (AUTO) 6.3 % (2-12); NEUTROPHILS % (AUTO) 91.1 % (42-75); PLATELET COUNT 149 X10'3 (140-440); RED BLOOD COUNT 2.69 X10'6 (4.70-6.10); WHITE BLOOD COUNT 8.7 X10'3 (4.5-11.0)
[2017-12-14 07:50] LABS: INR 1.3 INR; PARTIAL THROMBOPLASTIN TIME 27 SECONDS (22-32); PROTHROMBIN TIME 13.2 SECONDS (9.0-12.0)
[2017-12-14 08:01] LABS: CREATINE KINASE 49 U/L (39-308); MAGNESIUM 2.4 MG/DL (1.5-2.4); PHOSPHORUS 2.7 MG/DL (2.3-4.5)
[2017-12-14 08:19] LABS: ALANINE AMINOTRANSFERASE 379 U/L (12-78); ALBUMIN 2.7 G/DL (3.4-5.0); ALBUMIN/GLOBULIN RATIO 0.8 (1.1-1.5); ALKALINE PHOSPHATASE 563 IU/L (46-116); ANION GAP 13 (8-16); ANISOCYTOSIS 2+; ASPARTATE AMINO TRANSFERASE 96 U/L (10-37); BILIRUBIN,TOTAL 1.8 MG/DL (0.1-1.0); BLOOD UREA NITROGEN 74 MG/DL (7-18); BUN/CREATININE RATIO 35.2 (5.4-32.0); CALCIUM 9.1 MG/DL (8.5-10.1); CHLORIDE 104 MMOL/L (99-107); GLUCOSE 154 MG/DL (70-104); MICROCYTOSIS 1+; PLATELET ESTIMATE NORMAL; POIKILOCYTOSIS FEW; POLYCHROMASIA 1+; SODIUM 146 MMOL/L (135-145); TOTAL CARBON DIOXIDE 28.6 MMOL/L (24-32); TOTAL PROTEIN 6.2 G/DL (6.4-8.2); eGFR 31 ML/MIN
[2017-12-14 08:22] LABS: POTASSIUM 2.7 MMOL/L (3.5-5.1)
[2017-12-14] MEDS ORDERED: potassium 10mEq/100ml NS w/LIDOcaine (10mg/bag) IV ONE (08:30)
[2017-12-14] MEDS ORDERED: potassium Cl 20 mEq SR tablet PO ONE (08:30)
[2017-12-14] MEDS ORDERED: magnesium 4gm in 100ml NS 100 ML IV PRN (09:30)
[2017-12-14] MEDS ORDERED: magnesium Cl slow-release 64mg tablet PO PRN (09:30)
[2017-12-14] MEDS ORDERED: potassium Cl 40MEQ/NS 500ml 500 ML IV PRN ×2 (09:30)
[2017-12-14] MEDS ORDERED: mag hydrox/Alum hydrox/simeth 30ml oral suspension PO PRN (09:30)
[2017-12-14] MEDS ORDERED: potassium Cl 20 mEq SR tablet PO PRN (09:30)
[2017-12-14] MEDS ORDERED: magnesium 2GM in 50ml NS 50 ML IV PRN (09:30)
[2017-12-14] MEDS ORDERED: HYDROcodone/acetaminophen 5mg/325mg tablet PO PRN (09:30)
[2017-12-14] MEDS ORDERED: acetaminophen 325mg tablet PO PRN ×2 (09:30)
[2017-12-14 10:24] LABS: OCCULT BLOOD STOOL POSITIVE (Neg)
[2017-12-14] MEDS: potassium Cl 20 mEq SR tablet PO PRN ×2 (13:50→20:56)
[2017-12-14] MEDS: tamsulosin 0.4mg capsule PO SCH ×2 (16:33→20:54)
[2017-12-14] MEDS: nicotine 14mg patch - 24hr TD SCH (16:33)
[2017-12-14] MEDS: HYDROcodone/acetaminophen 10/325mg tab PO PRN ×2 (16:36→22:46)
[2017-12-14] MEDS ORDERED: heparin, porcine 5000 units/ml vial SQ SCH (20:00)
[2017-12-14] MEDS: apixaban 5mg tablet PO SCH (20:54)
[2017-12-14] MEDS: buPROPion 75mg tablet PO SCH (20:55)
[2017-12-14] MEDS: magnesium oxide 400mg tablet PO SCH (20:55)
[2017-12-14] MEDS ORDERED: temazepam 15mg capsule PO PRN (21:00)
[2017-12-15 05:03] LABS: BASOPHILS % (AUTO) 0 % (0-1); EOSINOPHILS # (AUTO) 0.1 X10'3 (0-0.9); EOSINOPHILS % (AUTO) 0.7 % (0-6); HEMATOCRIT 31.4 % (42.0-52.0); HEMOGLOBIN 10.1 g/dl (14.0-17.9); LYMPHOCYTES # (AUTO) 0.5 X10'3 (1.1-4.8); LYMPHOCYTES % (AUTO) 6.4 % (21-51); MEAN CORPUSCULAR HEMOGLOBIN 27.8 PG (27.0-31.0); MEAN CORPUSCULAR HGB CONC 32.1 % (33.0-36.5); MEAN CORPUSCULAR VOLUME 86.5 FL (78-98); MEAN PLATELET VOLUME 10.6 FL (7.4-10.4); MONOCYTES # (AUTO) 0.5 X10'3 (0-0.9); NEUTROPHILS # (AUTO) 6.5 X10'3 (1.8-7.7); NEUTROPHILS % (AUTO) 85.9 % (42-75); PLATELET COUNT 104 X10'3 (140-440); RED BLOOD COUNT 3.64 X10'6 (4.70-6.10); RED CELL DISTRIBUTION WIDTH 20.1 % (11.5-14.5); WHITE BLOOD COUNT 7.5 X10'3 (4.5-11.0)
[2017-12-15 05:22] LABS: ALANINE AMINOTRANSFERASE 327 U/L (12-78); ALBUMIN 2.5 G/DL (3.4-5.0); ALBUMIN/GLOBULIN RATIO 0.8 (1.1-1.5); ALKALINE PHOSPHATASE 676 IU/L (46-116); ANION GAP 8 (8-16); ASPARTATE AMINO TRANSFERASE 112 U/L (10-37); BILIRUBIN,TOTAL 2.2 MG/DL (0.1-1.0); BLOOD UREA NITROGEN 60 MG/DL (7-18); BUN/CREATININE RATIO 37.5 (5.4-32.0); CALCIUM 8.9 MG/DL (8.5-10.1); CHLORIDE 105 MMOL/L (99-107); GLUCOSE 153 MG/DL (70-104); MAGNESIUM 2.4 MG/DL (1.5-2.4); POTASSIUM 3.9 MMOL/L (3.5-5.1); SODIUM 141 MMOL/L (135-145); TOTAL CARBON DIOXIDE 28.1 MMOL/L (24-32); TOTAL PROTEIN 5.6 G/DL (6.4-8.2); eGFR 43 ML/MIN
[2017-12-15 06:05] LABS: ABG BASE EXCESS 2.2 mmol/L (-2.0-3.0); ABG HCO3 24.9 mmol/L (22.0-26.0); ABG OXYGEN SATURATION 94.8 % (95-98); ABG PCO2 (T) 31.5 mmHg (35.0-48.0); ABG PH (T) 7.514 (7.350-7.450); ALLEN'S TEST Positive; FCOHb 0.3 % (0.5-1.5); FLOW 12 L/min; FMetHb 0.5 % (0.3-1.12); PATIENT TEMPERATURE 36.8; RESPIRATORY RATE (OBSERVED) 20 b/min; TOTAL HEMOGLOBIN 10.2 G/dl (14.0-18.0)
[2017-12-15] MEDS ORDERED: furosemide 40mg/4ml inj IV ONE (06:10)
[2017-12-15] MEDS: albuterol 2.5 MG/3 ML nebule NEB PRN ×2 (06:12→21:53)
[2017-12-15 07:00] VITALS: BP 122/85
[2017-12-15] MEDS: apixaban 5mg tablet PO SCH (08:00)
[2017-12-15] MEDS: K and/or MAG REPLACEMENT MC SCH (08:00)
[2017-12-15] MEDS: furosemide 40mg/4ml inj IV SCH (08:00)
[2017-12-15] MEDS: nicotine 14mg patch - 24hr TD SCH (08:49)
[2017-12-15] MEDS: amLODIPine 5mg tablet PO SCH (08:57)
[2017-12-15] MEDS: atorvastatin 20mg tablet PO SCH (08:57)
[2017-12-15] MEDS: tamsulosin 0.4mg capsule PO SCH ×2 (08:57→22:33)
[2017-12-15] MEDS: cefTRIAXone 1g/NS 100ml IVPB 100 ML IV SCH (08:58)
[2017-12-15] MEDS: magnesium oxide 400mg tablet PO SCH ×2 (08:58→22:33)
[2017-12-15] MEDS: buPROPion 75mg tablet PO SCH ×2 (09:02→22:33)
[2017-12-15] MEDS ORDERED: furosemide 20 MG/2 ML vial IV ONE (10:15)
[2017-12-15 11:00] VITALS: BP 127/69
[2017-12-15] MEDS: clopidogrel 75mg tablet PO SCH (11:53)
[2017-12-15] MEDS ORDERED: LACTOBACILLUS RHAMNOSUS GG 15 billion unit sprinkle caps PO SCH (17:30)
[2017-12-15 18:30] VITALS: BP 137/70
[2017-12-15] MEDS: HYDROcodone/acetaminophen 10/325mg tab PO PRN (19:11)
[2017-12-15] MEDS ORDERED: LORazepam 0.5 MG tablet PO PRN (20:05)
[2017-12-15] MEDS: pantoprazole 40 MG vial IV SCH (22:33)
[2017-12-16] VITALS: BP 126/70
[2017-12-16 03:13] LABS: BASOPHILS % (AUTO) 0.2 % (0-1); EOSINOPHILS % (AUTO) 0.4 % (0-6); HEMATOCRIT 25.8 % (42.0-52.0); HEMOGLOBIN 8.4 g/dl (14.0-17.9); LYMPHOCYTES # (AUTO) 0.2 X10'3 (1.1-4.8); LYMPHOCYTES % (AUTO) 2.9 % (21-51); MEAN CORPUSCULAR HEMOGLOBIN 28.1 PG (27.0-31.0); MEAN CORPUSCULAR HGB CONC 32.4 % (33.0-36.5); MEAN CORPUSCULAR VOLUME 86.8 FL (78-98); MEAN PLATELET VOLUME 10.5 FL (7.4-10.4); MONOCYTES # (AUTO) 0.3 X10'3 (0-0.9); MONOCYTES % (AUTO) 3.5 % (2-12); NEUTROPHILS # (AUTO) 7.9 X10'3 (1.8-7.7); PLATELET COUNT 92 X10'3 (140-440); RED BLOOD COUNT 2.97 X10'6 (4.70-6.10); RED CELL DISTRIBUTION WIDTH 19.8 % (11.5-14.5); WHITE BLOOD COUNT 8.5 X10'3 (4.5-11.0)
[2017-12-16 05:26] LABS: LARGE PLATELETS FEW; PLATELET ESTIMATE DECREASED
[2017-12-16 06:37] LABS: ALANINE AMINOTRANSFERASE 223 U/L (12-78); ALBUMIN 2.3 G/DL (3.4-5.0); ALKALINE PHOSPHATASE 503 IU/L (46-116); ANION GAP 10 (8-16); ASPARTATE AMINO TRANSFERASE 50 U/L (10-37); BLOOD UREA NITROGEN 43 MG/DL (7-18); BUN/CREATININE RATIO 30.7 (5.4-32.0); CALCIUM 8.4 MG/DL (8.5-10.1); CHLORIDE 101 MMOL/L (99-107); GLUCOSE 180 MG/DL (70-104); MAGNESIUM 2.1 MG/DL (1.5-2.4); POTASSIUM 3.6 MMOL/L (3.5-5.1); SODIUM 138 MMOL/L (135-145); TOTAL CARBON DIOXIDE 27.4 MMOL/L (24-32); TROPONIN I 0.04 NG/ML (0.0-0.05); eGFR 50 ML/MIN
[2017-12-16 06:43] LABS: ALBUMIN/GLOBULIN RATIO -7.7 (1.1-1.5); TOTAL PROTEIN < 2.0 G/DL (6.4-8.2)
[2017-12-16 07:00] VITALS: BP 104/66
[2017-12-16] MEDS: K and/or MAG REPLACEMENT MC SCH (08:00)
[2017-12-16] MEDS: HYDROcodone/acetaminophen 10/325mg tab PO PRN ×3 (08:08→21:28)
[2017-12-16] MEDS: buPROPion 75mg tablet PO SCH ×2 (08:08→20:00)
[2017-12-16] MEDS: furosemide 40mg/4ml inj IV SCH (08:08)
[2017-12-16] MEDS: nicotine 14mg patch - 24hr TD SCH (08:09)
[2017-12-16] MEDS: clopidogrel 75mg tablet PO SCH (08:09)
[2017-12-16] MEDS: amLODIPine 5mg tablet PO SCH (08:09)
[2017-12-16] MEDS: LACTOBACILLUS RHAMNOSUS GG 15 billion unit sprinkle caps PO SCH (08:09)
[2017-12-16] MEDS: magnesium oxide 400mg tablet PO SCH ×2 (08:09→20:00)
[2017-12-16] MEDS: atorvastatin 20mg tablet PO SCH (08:09)
[2017-12-16] MEDS: tamsulosin 0.4mg capsule PO SCH ×2 (08:09→20:00)
[2017-12-16] MEDS: cefTRIAXone 1g/NS 100ml IVPB 100 ML IV SCH (08:09)
[2017-12-16] MEDS: pantoprazole 40 MG vial IV SCH ×2 (08:10→21:27)
[2017-12-16] MEDS: ondansetron/PF 4mg/2ml inj IV PRN ×2 (08:16→22:52)
[2017-12-16 12:00] VITALS: BP 122/66
[2017-12-16 18:40] VITALS: BP 125/68
[2017-12-16] MEDS: ipratropium/albuterol 3ml nebule NEB SCH ×3 (20:18→23:50)
[2017-12-17] VITALS (15 sets, daily range): BP systolic 93–150; BP diastolic 51–75
[2017-12-17] MEDS: HYDROcodone/acetaminophen 10/325mg tab PO PRN ×3 (02:05→20:18)
[2017-12-17] MEDS: ipratropium/albuterol 3ml nebule NEB SCH ×6 (03:00→23:24)
[2017-12-17] MEDS: K and/or MAG REPLACEMENT MC SCH (08:00)
[2017-12-17] MEDS: cefTRIAXone 1g/NS 100ml IVPB 100 ML IV SCH (08:29)
[2017-12-17] MEDS: magnesium oxide 400mg tablet PO SCH ×2 (08:33→20:17)
[2017-12-17] MEDS: LACTOBACILLUS RHAMNOSUS GG 15 billion unit sprinkle caps PO SCH (08:33)
[2017-12-17] MEDS: pantoprazole 40 MG vial IV SCH ×2 (08:33→20:19)
[2017-12-17] MEDS: furosemide 40mg/4ml inj IV SCH (08:34)
[2017-12-17] MEDS: atorvastatin 20mg tablet PO SCH (08:34)
[2017-12-17] MEDS: buPROPion 75mg tablet PO SCH ×2 (08:34→20:23)
[2017-12-17] MEDS: tamsulosin 0.4mg capsule PO SCH ×2 (08:34→20:17)
[2017-12-17] MEDS: amLODIPine 5mg tablet PO SCH (08:34)
[2017-12-17] MEDS ORDERED: normal saline 1000ml 1,000 ML IV SCH (08:39)
[2017-12-17] MEDS ORDERED: fentaNYL/PF 50MCG/1 ML 2ML syringe IV PRN (08:40)
[2017-12-17] MEDS ORDERED: LIDOcaine Viscous 15ml cup PO ONE (08:40)
[2017-12-17] MEDS ORDERED: MIDAZolam 5mg/5ml vial IV PRN (08:40)
[2017-12-17] MEDS ORDERED: simethicone 40mg/0.6ml oral drops 30ml MC ONE (08:40)
[2017-12-17] MEDS ORDERED: MIDAZolam 1mg/ml 10ml vial ONE (08:43)
[2017-12-17] MEDS ORDERED: fentaNYL/PF 50MCG/1 ML 2ML syringe ONE (08:43)
[2017-12-17] MEDS ORDERED: LIDOcaine Viscous 15ml cup ONE (08:44)
[2017-12-17] MEDS: nicotine 14mg patch - 24hr TD SCH (11:33)
[2017-12-17 11:40] LABS: BASOPHILS % (AUTO) 0 % (0-1); EOSINOPHILS # (AUTO) 0.1 X10'3 (0-0.9); EOSINOPHILS % (AUTO) 1.5 % (0-6); HEMATOCRIT 29.2 % (42.0-52.0); HEMOGLOBIN 9.3 g/dl (14.0-17.9); LYMPHOCYTES # (AUTO) 0.3 X10'3 (1.1-4.8); LYMPHOCYTES % (AUTO) 3.7 % (21-51); MEAN CORPUSCULAR HEMOGLOBIN 27.9 PG (27.0-31.0); MEAN CORPUSCULAR HGB CONC 31.9 % (33.0-36.5); MEAN CORPUSCULAR VOLUME 87.4 FL (78-98); MEAN PLATELET VOLUME 10.1 FL (7.4-10.4); MONOCYTES # (AUTO) 0.5 X10'3 (0-0.9); MONOCYTES % (AUTO) 5.6 % (2-12); NEUTROPHILS # (AUTO) 8.1 X10'3 (1.8-7.7); NEUTROPHILS % (AUTO) 89.2 % (42-75); PLATELET COUNT 87 X10'3 (140-440); RED BLOOD COUNT 3.34 X10'6 (4.70-6.10); RED CELL DISTRIBUTION WIDTH 19.6 % (11.5-14.5)
[2017-12-17 11:53] LABS: ALANINE AMINOTRANSFERASE 171 U/L (12-78); ALBUMIN 2.4 G/DL (3.4-5.0); ALBUMIN/GLOBULIN RATIO 0.7 (1.1-1.5); ALKALINE PHOSPHATASE 453 IU/L (46-116); ANION GAP 7 (8-16); ASPARTATE AMINO TRANSFERASE 39 U/L (10-37); BILIRUBIN,TOTAL 1.2 MG/DL (0.1-1.0); BLOOD UREA NITROGEN 33 MG/DL (7-18); BUN/CREATININE RATIO 27.5 (5.4-32.0); CALCIUM 8.4 MG/DL (8.5-10.1); CHLORIDE 102 MMOL/L (99-107); GLUCOSE 121 MG/DL (70-104); POTASSIUM 3.7 MMOL/L (3.5-5.1); SODIUM 139 MMOL/L (135-145); TOTAL CARBON DIOXIDE 30.2 MMOL/L (24-32); TOTAL PROTEIN 5.7 G/DL (6.4-8.2); eGFR 60 ML/MIN
[2017-12-17 12:15] LABS: H PYLORI ANTIBODY NEGATIVE (Neg)
[2017-12-17] MEDS: fluconazole 100mg tablet PO SCH (17:07)
[2017-12-17] MEDS: pantoprazole 40mg Tablet.DR PO SCH (17:08)
[2017-12-17 20:31] LABS: CLARITY,URINE Clear (Clear); COLOR,URINE Yellow (Yellow); GLUCOSE, URINE Negative (Neg); KETONES,URINE Negative (Neg); LEUKOCYTE ESTERASE ,URINE Small (Neg); NITRITES, URINE Negative (Neg); OCCULT BLOOD,URINE Negative (Neg); PROTEIN,URINE 30 mg/dl (Neg)
[2017-12-17 20:33] LABS: UA COLLECTION TYPE VOIDED
[2017-12-17 20:39] LABS: BACTERIA,URINE FEW /HPF (Neg); RBC,URINE NONE SEEN /HPF (0-2); SQUAMOUS EPITHELIAL CELL,UR NONE SEEN /LPF (FEW); YEAST MODERATE /HPF (NEGATIVE)
[2017-12-18] MEDS: HYDROcodone/acetaminophen 10/325mg tab PO PRN ×3 (04:10→20:34)
[2017-12-18] MEDS: albuterol 2.5 MG/3 ML nebule NEB PRN (04:19)
[2017-12-18 05:30] LABS: BASOPHILS % (AUTO) 0 % (0-1); EOSINOPHILS # (AUTO) 0.2 X10'3 (0-0.9); EOSINOPHILS % (AUTO) 1.9 % (0-6); HEMATOCRIT 27.3 % (42.0-52.0); HEMOGLOBIN 8.8 g/dl (14.0-17.9); LYMPHOCYTES # (AUTO) 0.5 X10'3 (1.1-4.8); LYMPHOCYTES % (AUTO) 5.9 % (21-51); MEAN CORPUSCULAR HEMOGLOBIN 28.1 PG (27.0-31.0); MEAN CORPUSCULAR HGB CONC 32.4 % (33.0-36.5); MEAN CORPUSCULAR VOLUME 86.9 FL (78-98); MONOCYTES # (AUTO) 0.6 X10'3 (0-0.9); NEUTROPHILS # (AUTO) 7.5 X10'3 (1.8-7.7); NEUTROPHILS % (AUTO) 85.2 % (42-75); PLATELET COUNT 82 X10'3 (140-440); RED BLOOD COUNT 3.14 X10'6 (4.70-6.10); RED CELL DISTRIBUTION WIDTH 19.4 % (11.5-14.5); WHITE BLOOD COUNT 8.8 X10'3 (4.5-11.0)
[2017-12-18 06:08] LABS: ALANINE AMINOTRANSFERASE 147 U/L (12-78); ALBUMIN 2.3 G/DL (3.4-5.0); ALBUMIN/GLOBULIN RATIO 0.7 (1.1-1.5); ALKALINE PHOSPHATASE 451 IU/L (46-116); ANION GAP 9 (8-16); ASPARTATE AMINO TRANSFERASE 34 U/L (10-37); BILIRUBIN,TOTAL 1.1 MG/DL (0.1-1.0); BLOOD UREA NITROGEN 28 MG/DL (7-18); BUN/CREATININE RATIO 23.3 (5.4-32.0); CALCIUM 8.2 MG/DL (8.5-10.1); CHLORIDE 101 MMOL/L (99-107); GLUCOSE 97 MG/DL (70-104); POTASSIUM 3.5 MMOL/L (3.5-5.1); SODIUM 139 MMOL/L (135-145); TOTAL CARBON DIOXIDE 29.2 MMOL/L (24-32); TOTAL PROTEIN 5.6 G/DL (6.4-8.2); eGFR 60 ML/MIN
[2017-12-18] MEDS: cefTRIAXone 1g/NS 100ml IVPB 100 ML IV SCH (07:04)
[2017-12-18] MEDS: magnesium oxide 400mg tablet PO SCH ×2 (07:05→21:46)
[2017-12-18] MEDS: nicotine 14mg patch - 24hr TD SCH (07:05)
[2017-12-18] MEDS: LACTOBACILLUS RHAMNOSUS GG 15 billion unit sprinkle caps PO SCH (07:05)
[2017-12-18] MEDS: ipratropium/albuterol 3ml nebule NEB SCH ×4 (07:07→20:54)
[2017-12-18] MEDS: buPROPion 75mg tablet PO SCH ×2 (07:07→21:46)
[2017-12-18] MEDS: tamsulosin 0.4mg capsule PO SCH ×2 (07:07→21:46)
[2017-12-18] MEDS: pantoprazole 40mg Tablet.DR PO SCH ×2 (07:08→16:11)
[2017-12-18 07:21] VITALS: BP 126/70
[2017-12-18] MEDS: amLODIPine 5mg tablet PO SCH (07:23)
[2017-12-18] MEDS: furosemide 40mg/4ml inj IV SCH (07:23)
[2017-12-18] MEDS: pantoprazole 40 MG vial IV SCH (07:24)
[2017-12-18] MEDS: K and/or MAG REPLACEMENT MC SCH (07:29)
[2017-12-18] MEDS: fluconazole 100mg tablet PO SCH (08:38)
[2017-12-18 11:31] VITALS: BP 119/64
[2017-12-18] MEDS: magnesium hydroxide 30ml (MOM) UD suspension PO PRN (14:46)
[2017-12-18 20:00] VITALS: BP_SYST 114; BP_SYST 117; BP_DIAS 68; BP_DIAS 69
[2017-12-18 23:00] VITALS: BP_SYST 114; BP_SYST 117; BP_DIAS 68; BP_DIAS 69
[2017-12-19] MEDS: ipratropium/albuterol 3ml nebule NEB SCH ×5 (00:02→15:00)
[2017-12-19] MEDS: HYDROcodone/acetaminophen 10/325mg tab PO PRN (05:26)
[2017-12-19 05:27] LABS: BASOPHILS % (AUTO) 0 % (0-1); EOSINOPHILS # (AUTO) 0.1 X10'3 (0-0.9); EOSINOPHILS % (AUTO) 1.5 % (0-6); HEMATOCRIT 27.7 % (42.0-52.0); LYMPHOCYTES # (AUTO) 0.6 X10'3 (1.1-4.8); MEAN CORPUSCULAR HGB CONC 32.5 % (33.0-36.5); MEAN PLATELET VOLUME 9.8 FL (7.4-10.4); MONOCYTES # (AUTO) 0.8 X10'3 (0-0.9); MONOCYTES % (AUTO) 9.1 % (2-12); NEUTROPHILS # (AUTO) 7.2 X10'3 (1.8-7.7); NEUTROPHILS % (AUTO) 82.4 % (42-75); PLATELET COUNT 93 X10'3 (140-440); RED BLOOD COUNT 3.22 X10'6 (4.70-6.10); RED CELL DISTRIBUTION WIDTH 19.3 % (11.5-14.5); WHITE BLOOD COUNT 8.8 X10'3 (4.5-11.0)
[2017-12-19 05:50] LABS: ALANINE AMINOTRANSFERASE 123 U/L (12-78); ALBUMIN 2.5 G/DL (3.4-5.0); ALBUMIN/GLOBULIN RATIO 0.7 (1.1-1.5); ALKALINE PHOSPHATASE 433 IU/L (46-116); ANION GAP 8 (8-16); ASPARTATE AMINO TRANSFERASE 28 U/L (10-37); BLOOD UREA NITROGEN 29 MG/DL (7-18); BUN/CREATININE RATIO 22.3 (5.4-32.0); CALCIUM 8.1 MG/DL (8.5-10.1); CHLORIDE 97 MMOL/L (99-107); GLUCOSE 120 MG/DL (70-104); MAGNESIUM 2.3 MG/DL (1.5-2.4); POTASSIUM 3.8 MMOL/L (3.5-5.1); SODIUM 135 MMOL/L (135-145); TOTAL CARBON DIOXIDE 30.5 MMOL/L (24-32); TOTAL PROTEIN 5.9 G/DL (6.4-8.2); eGFR 54 ML/MIN
[2017-12-19 07:07] VITALS: BP 127/72
[2017-12-19] MEDS: K and/or MAG REPLACEMENT MC SCH (08:00)
[2017-12-19] MEDS: cefTRIAXone 1g/NS 100ml IVPB 100 ML IV SCH (08:22)
[2017-12-19] MEDS: tamsulosin 0.4mg capsule PO SCH (08:23)
[2017-12-19] MEDS: LACTOBACILLUS RHAMNOSUS GG 15 billion unit sprinkle caps PO SCH (08:23)
[2017-12-19] MEDS: nicotine 14mg patch - 24hr TD SCH (08:23)
[2017-12-19] MEDS: furosemide 40mg/4ml inj IV SCH (08:23)
[2017-12-19] MEDS: pantoprazole 40mg Tablet.DR PO SCH ×2 (08:23→16:31)
[2017-12-19] MEDS: amLODIPine 5mg tablet PO SCH (08:23)
[2017-12-19] MEDS: fluconazole 100mg tablet PO SCH (08:23)
[2017-12-19] MEDS: magnesium oxide 400mg tablet PO SCH (08:23)
[2017-12-19] MEDS: buPROPion 75mg tablet PO SCH (08:23)
[2017-12-19 11:16] VITALS: BP 118/74
[2017-12-19] MEDS: magnesium hydroxide 30ml (MOM) UD suspension PO PRN (17:31)
== END 2017-12-19 18:40 | DRG 377 ==
LOC: ER 06:46 → ED HOLD 09:27 → SUR 3N 11:40
PROVIDERS: ADMIT Internal Medicine; ATTEND Internal Medicine
PROC: 30233N1 Transfusion of Nonautologous Red Blood Cells into Peripheral Vein, Percutaneous Approach (ICD-10-PCS; 2017-12-14)
PROC: 0DJ08ZZ Inspection of Upper Intestinal Tract, Via Natural or Artificial Opening Endoscopic (ICD-10-PCS; principal; 2017-12-17)
DX: K29.71 Gastritis, unspecified, with bleeding (principal); J96.00 Acute respiratory failure, unspecified whether with hypoxia or hypercapnia; J18.9 Pneumonia, unspecified organism; I50.23 Acute on chronic systolic (congestive) heart failure; E44.0 Moderate protein-calorie malnutrition; B37.81 Candidal esophagitis; I13.0 Hypertensive heart and chronic kidney disease with heart failure and stage 1 through stage 4 chronic kidney disease, or unspecified chronic kidney disease; D69.6 Thrombocytopenia, unspecified; J96.20 Acute and chronic respiratory failure, unspecified whether with hypoxia or hypercapnia; J44.0 Chronic obstructive pulmonary disease with (acute) lower respiratory infection; B37.49 Other urogenital candidiasis; J44.1 Chronic obstructive pulmonary disease with (acute) exacerbation; I48.91 Unspecified atrial fibrillation; D50.9 Iron deficiency anemia, unspecified; E78.00 Pure hypercholesterolemia, unspecified; E87.6 Hypokalemia; G89.29 Other chronic pain; I25.10 Atherosclerotic heart disease of native coronary artery without angina pectoris; I73.9 Peripheral vascular disease, unspecified; K21.0 Gastro-esophageal reflux disease with esophagitis; K44.9 Diaphragmatic hernia without obstruction or gangrene; N18.3 Chronic kidney disease, stage 3 (moderate); Z72.0 Tobacco use; Z95.5 Presence of coronary angioplasty implant and graft; Z90.49 Acquired absence of other specified parts of digestive tract; Z79.01 Long term (current) use of anticoagulants; Z79.02 Long term (current) use of antithrombotics/antiplatelets; Z88.8 Allergy status to other drugs, medicaments and biological substances
CPT/HCPCS: 36415; 36600; 71045; 80053; 81001; 82272; 82550; 82803; 83605; 83735; 83874; 83880; 84100; 84145; 84484; 85018; 85025; 85610; 85730; 86677; 86885; 86900; 86901; 86920; 87040; 87070; 87088; 93005; 93308; 94640; 94760; 97110; 97116; 97162; 97530; 99291; A4620; A6212; A6213; C9113; G0500; J0696; J1940; J2250; J2405; J3010; J3480; J7030; P9016

== ENCOUNTER 2017-12-20 22:27 | Inpatient (IN) | payer OTHER, MEDICARE ==
[~2017-12-20] VITALS: Ht 182.9 cm; Wt 78.0 kg
[2017-12-20] MEDS ORDERED: methylPREDNISolone sod succ 125mg/2ml vial IV ONE (22:35)
[2017-12-20] MEDS ORDERED: ipratropium/albuterol 3ml nebule NEB ONE (22:35)
[2017-12-20 23:11] LABS: ABG BASE EXCESS 4.9 mmol/L (-2.0-3.0); ABG HCO3 27.5 mmol/L (22.0-26.0); ABG OXYGEN SATURATION 98.2 % (95-98); ABG PCO2 (T) 32.7 mmHg (35.0-48.0); ABG PH (T) 7.541 (7.350-7.450); ABG PO2 (T) 109.9 mmHg (83-108); FCOHb 0.5 % (0.5-1.5); FMetHb 0.2 % (0.3-1.12); FO2Hb 97.5 % (94-100); PATIENT TEMPERATURE 36.6; RESPIRATORY RATE 12 b/min; RESPIRATORY RATE (OBSERVED) 26 b/min; TOTAL HEMOGLOBIN 9.6 G/dl (14.0-18.0)
[2017-12-20 23:30] LABS: BASOPHILS % (AUTO) 0.1 % (0-1); EOSINOPHILS # (AUTO) 0.2 X10'3 (0-0.9); EOSINOPHILS % (AUTO) 1.8 % (0-6); HEMATOCRIT 30.3 % (42.0-52.0); HEMOGLOBIN 9.9 g/dl (14.0-17.9); LYMPHOCYTES # (AUTO) 0.4 X10'3 (1.1-4.8); LYMPHOCYTES % (AUTO) 3.1 % (21-51); MEAN CORPUSCULAR HEMOGLOBIN 28.1 PG (27.0-31.0); MEAN CORPUSCULAR HGB CONC 32.9 % (33.0-36.5); MEAN CORPUSCULAR VOLUME 85.4 FL (78-98); MEAN PLATELET VOLUME 10.1 FL (7.4-10.4); MONOCYTES # (AUTO) 0.4 X10'3 (0-0.9); MONOCYTES % (AUTO) 3.6 % (2-12); NEUTROPHILS # (AUTO) 10.3 X10'3 (1.8-7.7); NEUTROPHILS % (AUTO) 91.4 % (42-75); PLATELET COUNT 123 X10'3 (140-440); RED BLOOD COUNT 3.55 X10'6 (4.70-6.10); WHITE BLOOD COUNT 11.3 X10'3 (4.5-11.0)
[2017-12-20 23:38] LABS: INR 1.1 INR; PARTIAL THROMBOPLASTIN TIME 26 SECONDS (22-32); PROTHROMBIN TIME 11.1 SECONDS (9.0-12.0)
[2017-12-20 23:52] LABS: ALANINE AMINOTRANSFERASE 96 U/L (12-78); ALBUMIN 2.9 G/DL (3.4-5.0); ALBUMIN/GLOBULIN RATIO 0.8 (1.1-1.5); ALKALINE PHOSPHATASE 469 IU/L (46-116); ANION GAP 9 (8-16); ASPARTATE AMINO TRANSFERASE 30 U/L (10-37); BILIRUBIN,TOTAL 1.2 MG/DL (0.1-1.0); BLOOD UREA NITROGEN 33 MG/DL (7-18); BUN/CREATININE RATIO 23.6 (5.4-32.0); CALCIUM 8.6 MG/DL (8.5-10.1); CHLORIDE 97 MMOL/L (99-107); GLUCOSE 127 MG/DL (70-104); MAGNESIUM 2.4 MG/DL (1.5-2.4); POTASSIUM 4.1 MMOL/L (3.5-5.1); SODIUM 136 MMOL/L (135-145); TOTAL CARBON DIOXIDE 30.3 MMOL/L (24-32); TOTAL PROTEIN 6.7 G/DL (6.4-8.2); eGFR 50 ML/MIN
[2017-12-21] MEDS ORDERED: furosemide 10 MG/1 ML 10ml inj IV ONE
[2017-12-21] MEDS ORDERED: ondansetron/PF 4mg/2ml inj IV PRN ×2 (00:55→01:00)
[2017-12-21] MEDS ORDERED: normal saline 1000ml 1,000 ML IV SCH (00:59)
[2017-12-21] MEDS ORDERED: mag hydrox/Alum hydrox/simeth 30ml oral suspension PO PRN (01:00)
[2017-12-21] MEDS ORDERED: acetaminophen 650mg rectal suppository RC PRN (01:00)
[2017-12-21] MEDS ORDERED: morphine 2 MG/ML inj. syringe IV PRN ×2 (01:00)
[2017-12-21] MEDS ORDERED: magnesium hydroxide 30ml (MOM) UD suspension PO PRN (01:00)
[2017-12-21] MEDS ORDERED: acetaminophen 325mg tablet PO PRN ×2 (01:00)
[2017-12-21] MEDS ORDERED: diphenhydrAMINE 50 mg/ml inj IV PRN (01:00)
[2017-12-21] MEDS ORDERED: bisacodyl 10mg suppository rectal RC PRN (01:00)
[2017-12-21] MEDS ORDERED: HYDROmorphone 1 mg/ml syringe IV PRN ×2 (01:00)
[2017-12-21] MEDS ORDERED: diphenhydrAMINE 25mg capsule PO PRN (01:00)
[2017-12-21] MEDS ORDERED: metoclopramide 5 mg/ml inj IV PRN (01:00)
[2017-12-21 01:41] LABS: LIPASE 130 U/L (73-393)
[2017-12-21 01:53] LABS: PHOSPHORUS 2.4 MG/DL (2.3-4.5)
[2017-12-21] MEDS ORDERED: albuterol 2.5 MG/3 ML nebule NEB PRN (02:00)
[2017-12-21] MEDS: levoFLOXACIN-Levaquin 750MG/D5 150 ML IV SCH (02:03)
[2017-12-21 02:04] LABS: ANISOCYTOSIS 2+; PLATELET ESTIMATE DECREASED; TOTAL CELLS COUNTED 100
[2017-12-21 02:05] LABS: ELLIPTOCYTES FEW; POLYCHROMASIA FEW; SCHISTOCYTES FEW; STOMATOCYTES 1+
[2017-12-21 02:07] LABS: TOXIC GRANULATION 1+
[2017-12-21 07:30] VITALS: BP 130/67
[2017-12-21] MEDS ORDERED: atorvastatin 20mg tablet PO SCH (08:00)
[2017-12-21] MEDS ORDERED: methylPREDNISolone sod succ 125mg/2ml vial IV SCH (08:00)
[2017-12-21] MEDS ORDERED: apixaban 5mg tablet PO SCH (08:00)
[2017-12-21] MEDS: clopidogrel 75mg tablet PO SCH (09:03)
[2017-12-21] MEDS: ferrous sulfate 325mg tablet PO SCH (09:03)
[2017-12-21] MEDS: buPROPion 75mg tablet PO SCH ×2 (09:03→21:31)
[2017-12-21] MEDS: amLODIPine 5mg tablet PO SCH (09:04)
[2017-12-21] MEDS: docusate sod 100mg capsule PO SCH ×2 (09:04→21:30)
[2017-12-21] MEDS: pantoprazole 40 MG vial IV SCH (09:05)
[2017-12-21] MEDS: furosemide 10 MG/1 ML 10ml inj IV SCH ×2 (09:09→21:30)
[2017-12-21 11:00] VITALS: BP 125/68
[2017-12-21] MEDS ORDERED: FLUC200T PO (11:46)
[2017-12-21] MEDS ORDERED: AMOX-580 PO (11:46)
[2017-12-21] MEDS ORDERED: NICO-731 TOP (11:46)
[2017-12-21] MEDS ORDERED: DOCU-28 PO (11:46)
[2017-12-21] MEDS ORDERED: FLO0.4C PO (11:46)
[2017-12-21] MEDS ORDERED: LACT1CAP65 PO (11:53)
[2017-12-21] MEDS ORDERED: TEMA15CA5 PO (11:53)
[2017-12-21] MEDS ORDERED: OMEP20CA10 PO (11:53)
[2017-12-21 15:00] VITALS: BP 107/56
[2017-12-21] MEDS: methylPREDNISolone sod succ 125mg/2ml vial IV SCH (15:49)
[2017-12-21] MEDS: fluconazole 100mg tablet PO SCH (15:50)
[2017-12-21] MEDS: HYDROcodone/acetaminophen 5mg/325mg tablet PO PRN (16:00)
[2017-12-21] MEDS: lactobacillus rhamnosus 10,000 MMU CELLS/CAPSULE PO SCH (17:49)
[2017-12-21 18:00] VITALS: BP 125/72
[2017-12-21] MEDS: temazepam 15mg capsule PO PRN (21:32)
[2017-12-21] MEDS: HYDROcodone/acetaminophen 10/325mg tab PO PRN (21:32)
[2017-12-21 22:00] VITALS: BP 108/62
[2017-12-22] MEDS: methylPREDNISolone sod succ 125mg/2ml vial IV SCH ×3 (00:48→16:18)
[2017-12-22 02:00] VITALS: BP 115/71
[2017-12-22] MEDS: levoFLOXACIN-Levaquin 750MG/D5 150 ML IV SCH ×2 (02:32→02:41)
[2017-12-22] MEDS: HYDROcodone/acetaminophen 10/325mg tab PO PRN ×4 (02:51→20:01)
[2017-12-22 05:14] LABS: BASOPHILS % (AUTO) 0 % (0-1); EOSINOPHILS # (AUTO) 0.1 X10'3 (0-0.9); EOSINOPHILS % (AUTO) 1.3 % (0-6); HEMATOCRIT 24.8 % (42.0-52.0); HEMOGLOBIN 8.1 g/dl (14.0-17.9); LYMPHOCYTES # (AUTO) 0.3 X10'3 (1.1-4.8); MEAN CORPUSCULAR HEMOGLOBIN 28.3 PG (27.0-31.0); MEAN CORPUSCULAR HGB CONC 32.6 % (33.0-36.5); MEAN CORPUSCULAR VOLUME 86.8 FL (78-98); MEAN PLATELET VOLUME 10.4 FL (7.4-10.4); MONOCYTES # (AUTO) 0.2 X10'3 (0-0.9); MONOCYTES % (AUTO) 2.1 % (2-12); NEUTROPHILS # (AUTO) 7.8 X10'3 (1.8-7.7); NEUTROPHILS % (AUTO) 92.6 % (42-75); PLATELET COUNT 106 X10'3 (140-440); RED BLOOD COUNT 2.86 X10'6 (4.70-6.10); RED CELL DISTRIBUTION WIDTH 18.9 % (11.5-14.5); WHITE BLOOD COUNT 8.5 X10'3 (4.5-11.0)
[2017-12-22 05:54] LABS: CHLORIDE 97 MMOL/L (99-107); GLUCOSE 198 MG/DL (70-104); POTASSIUM 3.1 MMOL/L (3.5-5.1); SODIUM 136 MMOL/L (135-145); TOTAL CARBON DIOXIDE 27.5 MMOL/L (24-32)
[2017-12-22 05:55] LABS: ALANINE AMINOTRANSFERASE 71 U/L (12-78); ALBUMIN 2.5 G/DL (3.4-5.0); ALBUMIN/GLOBULIN RATIO 0.7 (1.1-1.5); ALKALINE PHOSPHATASE 341 IU/L (46-116); ANION GAP 12 (8-16); ASPARTATE AMINO TRANSFERASE 21 U/L (10-37); BILIRUBIN,TOTAL 0.9 MG/DL (0.1-1.0); BLOOD UREA NITROGEN 41 MG/DL (7-18); BUN/CREATININE RATIO 27.3 (5.4-32.0); CALCIUM 8.2 MG/DL (8.5-10.1); TOTAL PROTEIN 5.9 G/DL (6.4-8.2); eGFR 46 ML/MIN
[2017-12-22 06:00] VITALS: BP 110/66
[2017-12-22] MEDS ORDERED: potassium Cl 40MEQ/NS 500ml 500 ML IV PRN ×2 (08:30)
[2017-12-22] MEDS ORDERED: potassium Cl 20 mEq SR tablet PO PRN (08:30)
[2017-12-22] MEDS ORDERED: magnesium 4gm in 100ml NS 100 ML IV PRN (08:30)
[2017-12-22] MEDS ORDERED: magnesium Cl slow-release 64mg tablet PO PRN (08:30)
[2017-12-22] MEDS ORDERED: magnesium 2GM in 50ml NS 50 ML IV PRN (08:30)
[2017-12-22] MEDS: pantoprazole 40 MG vial IV SCH (09:01)
[2017-12-22] MEDS: furosemide 10 MG/1 ML 10ml inj IV SCH ×2 (09:01→16:17)
[2017-12-22] MEDS: clopidogrel 75mg tablet PO SCH (09:01)
[2017-12-22] MEDS: lactobacillus rhamnosus 10,000 MMU CELLS/CAPSULE PO SCH ×2 (09:01→16:42)
[2017-12-22] MEDS: amLODIPine 5mg tablet PO SCH (09:02)
[2017-12-22] MEDS: potassium Cl 20 mEq SR tablet PO PRN ×2 (09:02→13:40)
[2017-12-22] MEDS: buPROPion 75mg tablet PO SCH ×2 (09:02→19:57)
[2017-12-22] MEDS: fluconazole 100mg tablet PO SCH (09:02)
[2017-12-22] MEDS: docusate sod 100mg capsule PO SCH ×2 (09:02→19:55)
[2017-12-22] MEDS: ferrous sulfate 325mg tablet PO SCH (09:03)
[2017-12-22] MEDS: nicotine 14mg patch - 24hr TD SCH (09:51)
[2017-12-22 11:00] VITALS: BP 102/59
[2017-12-22 12:23] LABS: BASOPHILS % (AUTO) 0 % (0-1); EOSINOPHILS # (AUTO) 0.1 X10'3 (0-0.9); EOSINOPHILS % (AUTO) 1.6 % (0-6); HEMATOCRIT 25.1 % (42.0-52.0); HEMOGLOBIN 8.4 g/dl (14.0-17.9); LYMPHOCYTES # (AUTO) 0.3 X10'3 (1.1-4.8); LYMPHOCYTES % (AUTO) 3.3 % (21-51); MEAN CORPUSCULAR HEMOGLOBIN 28.4 PG (27.0-31.0); MEAN CORPUSCULAR HGB CONC 33.5 % (33.0-36.5); MEAN CORPUSCULAR VOLUME 84.7 FL (78-98); MEAN PLATELET VOLUME 10.2 FL (7.4-10.4); MONOCYTES # (AUTO) 0.3 X10'3 (0-0.9); NEUTROPHILS % (AUTO) 92.1 % (42-75); PLATELET COUNT 103 X10'3 (140-440); RED BLOOD COUNT 2.97 X10'6 (4.70-6.10); RED CELL DISTRIBUTION WIDTH 18.2 % (11.5-14.5); WHITE BLOOD COUNT 8.6 X10'3 (4.5-11.0)
[2017-12-22 15:00] VITALS: BP 101/57
[2017-12-22] MEDS: potassium Cl 20 mEq SR tablet PO SCH (16:18)
[2017-12-22 18:00] VITALS: BP 112/65
[2017-12-22 22:00] VITALS: BP 108/61
[2017-12-23] MEDS: methylPREDNISolone sod succ 125mg/2ml vial IV SCH ×3 (00:33→16:45)
[2017-12-23] MEDS: furosemide 10 MG/1 ML 10ml inj IV SCH ×3 (00:35→16:45)
[2017-12-23] MEDS: temazepam 15mg capsule PO PRN (00:35)
[2017-12-23] MEDS: HYDROcodone/acetaminophen 10/325mg tab PO PRN ×2 (00:36→16:46)
[2017-12-23] MEDS: potassium Cl 20 mEq SR tablet PO SCH ×3 (00:37→16:46)
[2017-12-23 02:00] VITALS: BP 104/61
[2017-12-23] MEDS: levoFLOXACIN-Levaquin 750MG/D5 150 ML IV SCH (02:28)
[2017-12-23 05:24] LABS: BASOPHILS % (AUTO) 0 % (0-1); EOSINOPHILS # (AUTO) 0.2 X10'3 (0-0.9); EOSINOPHILS % (AUTO) 1.8 % (0-6); HEMATOCRIT 25.7 % (42.0-52.0); HEMOGLOBIN 8.5 g/dl (14.0-17.9); LYMPHOCYTES # (AUTO) 0.2 X10'3 (1.1-4.8); LYMPHOCYTES % (AUTO) 2.2 % (21-51); MEAN CORPUSCULAR HEMOGLOBIN 28.1 PG (27.0-31.0); MEAN CORPUSCULAR HGB CONC 33.1 % (33.0-36.5); MEAN CORPUSCULAR VOLUME 84.8 FL (78-98); MEAN PLATELET VOLUME 9.9 FL (7.4-10.4); MONOCYTES # (AUTO) 0.2 X10'3 (0-0.9); MONOCYTES % (AUTO) 2.3 % (2-12); NEUTROPHILS # (AUTO) 9.8 X10'3 (1.8-7.7); NEUTROPHILS % (AUTO) 93.7 % (42-75); PLATELET COUNT 111 X10'3 (140-440); RED BLOOD COUNT 3.02 X10'6 (4.70-6.10); RED CELL DISTRIBUTION WIDTH 18.8 % (11.5-14.5); WHITE BLOOD COUNT 10.4 X10'3 (4.5-11.0)
[2017-12-23 06:00] VITALS: BP 102/59
[2017-12-23 06:12] LABS: ALANINE AMINOTRANSFERASE 67 U/L (12-78); ALBUMIN 2.7 G/DL (3.4-5.0); ALBUMIN/GLOBULIN RATIO 0.8 (1.1-1.5); ALKALINE PHOSPHATASE 325 IU/L (46-116); ANION GAP 12 (8-16); ASPARTATE AMINO TRANSFERASE 21 U/L (10-37); BILIRUBIN,TOTAL 0.9 MG/DL (0.1-1.0); BLOOD UREA NITROGEN 49 MG/DL (7-18); BUN/CREATININE RATIO 28.8 (5.4-32.0); CALCIUM 8.7 MG/DL (8.5-10.1); CHLORIDE 97 MMOL/L (99-107); GLUCOSE 195 MG/DL (70-104); POTASSIUM 4.5 MMOL/L (3.5-5.1); SODIUM 135 MMOL/L (135-145); TOTAL CARBON DIOXIDE 26.4 MMOL/L (24-32); TOTAL PROTEIN 6.2 G/DL (6.4-8.2); eGFR 40 ML/MIN
[2017-12-23] MEDS: clopidogrel 75mg tablet PO SCH (08:00)
[2017-12-23] MEDS: buPROPion 75mg tablet PO SCH ×2 (09:06→20:02)
[2017-12-23] MEDS: amLODIPine 5mg tablet PO SCH (09:06)
[2017-12-23] MEDS: lactobacillus rhamnosus 10,000 MMU CELLS/CAPSULE PO SCH ×2 (09:07→17:35)
[2017-12-23] MEDS: docusate sod 100mg capsule PO SCH ×2 (09:07→20:01)
[2017-12-23] MEDS: fluconazole 100mg tablet PO SCH (09:07)
[2017-12-23] MEDS: ferrous sulfate 325mg tablet PO SCH (09:07)
[2017-12-23] MEDS: pantoprazole 40 MG vial IV SCH (09:08)
[2017-12-23] MEDS: nicotine 14mg patch - 24hr TD SCH (09:09)
[2017-12-23 11:00] VITALS: BP 107/61
[2017-12-23 15:00] VITALS: BP 106/61
[2017-12-23 19:00] VITALS: BP 98/69
[2017-12-23 23:00] VITALS: BP 100/59
[2017-12-24] VITALS (7 sets, daily range): BP systolic 15–132; BP diastolic 57–65
[2017-12-24] MEDS: furosemide 10 MG/1 ML 10ml inj IV SCH ×3 (01:26→16:00)
[2017-12-24] MEDS: potassium Cl 20 mEq SR tablet PO SCH ×3 (01:35→16:00)
[2017-12-24] MEDS: HYDROcodone/acetaminophen 10/325mg tab PO PRN ×2 (01:36→21:58)
[2017-12-24] MEDS: methylPREDNISolone sod succ 125mg/2ml vial IV SCH ×3 (01:37→17:35)
[2017-12-24 06:13] LABS: BASOPHILS % (AUTO) 0 % (0-1); EOSINOPHILS # (AUTO) 0.2 X10'3 (0-0.9); EOSINOPHILS % (AUTO) 2.2 % (0-6); HEMATOCRIT 27.5 % (42.0-52.0); HEMOGLOBIN 8.9 g/dl (14.0-17.9); LYMPHOCYTES # (AUTO) 0.4 X10'3 (1.1-4.8); LYMPHOCYTES % (AUTO) 3.3 % (21-51); MEAN CORPUSCULAR HEMOGLOBIN 27.8 PG (27.0-31.0); MEAN CORPUSCULAR HGB CONC 32.5 % (33.0-36.5); MEAN CORPUSCULAR VOLUME 85.5 FL (78-98); MEAN PLATELET VOLUME 10.8 FL (7.4-10.4); MONOCYTES # (AUTO) 0.2 X10'3 (0-0.9); MONOCYTES % (AUTO) 1.9 % (2-12); NEUTROPHILS # (AUTO) 10.3 X10'3 (1.8-7.7); NEUTROPHILS % (AUTO) 92.6 % (42-75); PLATELET COUNT 129 X10'3 (140-440); RED BLOOD COUNT 3.21 X10'6 (4.70-6.10); RED CELL DISTRIBUTION WIDTH 18.5 % (11.5-14.5); WHITE BLOOD COUNT 11.2 X10'3 (4.5-11.0)
[2017-12-24 06:41] LABS: LARGE PLATELETS FEW; PLATELET ESTIMATE DECREASED
[2017-12-24 06:47] LABS: ALANINE AMINOTRANSFERASE 75 U/L (12-78); ALBUMIN 2.9 G/DL (3.4-5.0); ALBUMIN/GLOBULIN RATIO 0.8 (1.1-1.5); ALKALINE PHOSPHATASE 326 IU/L (46-116); ANION GAP 13 (8-16); ASPARTATE AMINO TRANSFERASE 41 U/L (10-37); BILIRUBIN,TOTAL 1.4 MG/DL (0.1-1.0); BLOOD UREA NITROGEN 67 MG/DL (7-18); BUN/CREATININE RATIO 31.9 (5.4-32.0); CHLORIDE 98 MMOL/L (99-107); GLUCOSE 167 MG/DL (70-104); SODIUM 134 MMOL/L (135-145); TOTAL CARBON DIOXIDE 23.2 MMOL/L (24-32); TOTAL PROTEIN 6.4 G/DL (6.4-8.2); eGFR 31 ML/MIN
[2017-12-24 06:49] LABS: POTASSIUM 6.6 MMOL/L (3.5-5.1)
[2017-12-24] MEDS ORDERED: sodium polystyrene sulfonate 15gm/60ml oral suspension PO ONE (06:55)
[2017-12-24] MEDS ORDERED: furosemide 40mg/4ml inj IV ONE (06:55)
[2017-12-24] MEDS ORDERED: sodium bicarbonate (8.4%) 1 mEq/ml syringe IV ONE ×2 (07:00→10:35)
[2017-12-24] MEDS: pantoprazole 40mg Tablet.DR PO SCH (07:30)
[2017-12-24] MEDS: lactobacillus rhamnosus 10,000 MMU CELLS/CAPSULE PO SCH ×2 (07:30→17:30)
[2017-12-24] MEDS: docusate sod 100mg capsule PO SCH ×2 (08:00→20:00)
[2017-12-24] MEDS: buPROPion 75mg tablet PO SCH ×2 (08:00→20:08)
[2017-12-24] MEDS: fluconazole 100mg tablet PO SCH (08:00)
[2017-12-24] MEDS: ferrous sulfate 325mg tablet PO SCH (08:30)
[2017-12-24] MEDS: nicotine 14mg patch - 24hr TD SCH (08:58)
[2017-12-24 10:22] LABS: ALBUMIN 2.8 G/DL (3.4-5.0); ANION GAP 13 (8-16); BLOOD UREA NITROGEN 72 MG/DL (7-18); BUN/CREATININE RATIO 32.7 (5.4-32.0); CALCIUM 8.6 MG/DL (8.5-10.1); CHLORIDE 97 MMOL/L (99-107); GLUCOSE 193 MG/DL (70-104); SODIUM 133 MMOL/L (135-145); TOTAL CARBON DIOXIDE 23.4 MMOL/L (24-32); eGFR 30 ML/MIN
[2017-12-24 10:25] LABS: POTASSIUM 6.7 MMOL/L (3.5-5.1)
[2017-12-24] MEDS ORDERED: dextrose 50%-water 50ml dispensing syringe IV ONE (10:35)
[2017-12-24] MEDS ORDERED: albuterol 2.5 MG/3 ML nebule NEB ONE (10:35)
[2017-12-24] MEDS ORDERED: calcium chloride 100 MG/1 ML inj IV ONE (10:35)
[2017-12-24] MEDS ORDERED: insulin regular, human 10 units/0.1 ml syringe IV ONE (10:35)
[2017-12-24] MEDS ORDERED: calcium chloride inj. 1,000 MG in normal saline 100ml IV soln 90 ML IV ONE (10:45)
[2017-12-24] MEDS: sodium polystyrene sulfonate 15gm/60ml oral suspension PO ONE ×2 (11:07→11:11)
[2017-12-24 15:21] LABS: ALBUMIN 2.8 G/DL (3.4-5.0); ANION GAP 12 (8-16); BLOOD UREA NITROGEN 74 MG/DL (7-18); BUN/CREATININE RATIO 29.6 (5.4-32.0); CALCIUM 9.3 MG/DL (8.5-10.1); CHLORIDE 99 MMOL/L (99-107); GLUCOSE 159 MG/DL (70-104); POTASSIUM 5.3 MMOL/L (3.5-5.1); SODIUM 136 MMOL/L (135-145); TOTAL CARBON DIOXIDE 24.6 MMOL/L (24-32); eGFR 26 ML/MIN
[2017-12-24 17:18] LABS: BFSOURCE RIGHT PLEURAL FLD
[2017-12-24 18:12] LABS: GLUCOSE,BODY FLUID 190 MG/DL; LDH,BODY FLUID 43 U/L
[2017-12-24 18:17] LABS: BF RBC COUNT 26 /CU MM; BF WBC COUNT 39 /CU MM (0-1000); BFAPPEAR HAZY; BFCOLOR STRAW; BFVOLUME 54 ML
[2017-12-24 18:23] LABS: LYMPHOCYTES,BODY FLUID 19 %; MONOCYTES,BODY FLUID 75 %; NEUTROPHILS,BODY FLUID 6 %
[2017-12-24 18:24] LABS: BF MESOTHELIAL CELLS FEW
[2017-12-24 18:36] LABS: TOTAL PROTEIN,BODY FLUID < 2.0 G/DL
[2017-12-25] VITALS (7 sets, daily range): BP systolic 110–122; BP diastolic 58–86
[2017-12-25] MEDS: furosemide 10 MG/1 ML 10ml inj IV SCH ×4 (00:20→23:58)
[2017-12-25] MEDS: methylPREDNISolone sod succ 125mg/2ml vial IV SCH ×4 (00:20→23:56)
[2017-12-25] MEDS ORDERED: levoFLOXACIN-Levaquin 750MG/D5 150 ML IV SCH (02:00)
[2017-12-25 05:59] LABS: BASOPHILS % (AUTO) 0 % (0-1); EOSINOPHILS # (AUTO) 0.1 X10'3 (0-0.9); EOSINOPHILS % (AUTO) 1.6 % (0-6); HEMATOCRIT 23.7 % (42.0-52.0); HEMOGLOBIN 7.8 g/dl (14.0-17.9); LYMPHOCYTES # (AUTO) 0.2 X10'3 (1.1-4.8); LYMPHOCYTES % (AUTO) 2.1 % (21-51); MEAN CORPUSCULAR HEMOGLOBIN 28.1 PG (27.0-31.0); MEAN CORPUSCULAR HGB CONC 32.9 % (33.0-36.5); MEAN CORPUSCULAR VOLUME 85.5 FL (78-98); MEAN PLATELET VOLUME 10.8 FL (7.4-10.4); MONOCYTES # (AUTO) 0.2 X10'3 (0-0.9); MONOCYTES % (AUTO) 2.4 % (2-12); NEUTROPHILS # (AUTO) 7.5 X10'3 (1.8-7.7); NEUTROPHILS % (AUTO) 93.9 % (42-75); PLATELET COUNT 106 X10'3 (140-440); RED BLOOD COUNT 2.77 X10'6 (4.70-6.10); RED CELL DISTRIBUTION WIDTH 18.4 % (11.5-14.5)
[2017-12-25 06:04] LABS: ALANINE AMINOTRANSFERASE 108 U/L (12-78); ALBUMIN 2.5 G/DL (3.4-5.0); ALBUMIN/GLOBULIN RATIO 0.9 (1.1-1.5); ALKALINE PHOSPHATASE 404 IU/L (46-116); ANION GAP 11 (8-16); ASPARTATE AMINO TRANSFERASE 73 U/L (10-37); BILIRUBIN,TOTAL 1.2 MG/DL (0.1-1.0); BLOOD UREA NITROGEN 72 MG/DL (7-18); BUN/CREATININE RATIO 32.7 (5.4-32.0); CALCIUM 8.2 MG/DL (8.5-10.1); CHLORIDE 98 MMOL/L (99-107); GLUCOSE 181 MG/DL (70-104); POTASSIUM 3.2 MMOL/L (3.5-5.1); SODIUM 136 MMOL/L (135-145); TOTAL CARBON DIOXIDE 26.8 MMOL/L (24-32); TOTAL PROTEIN 5.2 G/DL (6.4-8.2); eGFR 30 ML/MIN
[2017-12-25] MEDS: ferrous sulfate 325mg tablet PO SCH (07:14)
[2017-12-25] MEDS: nicotine 14mg patch - 24hr TD SCH (07:14)
[2017-12-25] MEDS: buPROPion 75mg tablet PO SCH ×2 (07:14→19:47)
[2017-12-25] MEDS: lactobacillus rhamnosus 10,000 MMU CELLS/CAPSULE PO SCH ×2 (07:15→17:30)
[2017-12-25] MEDS: HYDROcodone/acetaminophen 10/325mg tab PO PRN ×2 (07:15→17:30)
[2017-12-25] MEDS: potassium Cl 20 mEq SR tablet PO SCH ×4 (07:15→23:59)
[2017-12-25] MEDS: clopidogrel 75mg tablet PO SCH (07:15)
[2017-12-25] MEDS: pantoprazole 40mg Tablet.DR PO SCH (07:15)
[2017-12-25] MEDS: levoFLOXACIN 750MG TABLET PO SCH (07:15)
[2017-12-25] MEDS: fluconazole 100mg tablet PO SCH (07:15)
[2017-12-25] MEDS: docusate sod 100mg capsule PO SCH ×2 (07:16→19:47)
[2017-12-25] MEDS ORDERED: morphine 5 MG/ML injection IV PRN ×2 (16:19→16:20)
[2017-12-26 03:00] VITALS: BP 118/62
[2017-12-26] MEDS: HYDROcodone/acetaminophen 10/325mg tab PO PRN (04:30)
[2017-12-26 05:21] LABS: BASOPHILS % (AUTO) 0 % (0-1); EOSINOPHILS # (AUTO) 0.2 X10'3 (0-0.9); EOSINOPHILS % (AUTO) 2.2 % (0-6); HEMATOCRIT 24.2 % (42.0-52.0); HEMOGLOBIN 7.9 g/dl (14.0-17.9); LYMPHOCYTES # (AUTO) 0.1 X10'3 (1.1-4.8); LYMPHOCYTES % (AUTO) 1.7 % (21-51); MEAN CORPUSCULAR HEMOGLOBIN 27.8 PG (27.0-31.0); MEAN CORPUSCULAR HGB CONC 32.9 % (33.0-36.5); MEAN CORPUSCULAR VOLUME 84.6 FL (78-98); MEAN PLATELET VOLUME 10.1 FL (7.4-10.4); MONOCYTES # (AUTO) 0.1 X10'3 (0-0.9); MONOCYTES % (AUTO) 1.2 % (2-12); NEUTROPHILS % (AUTO) 94.9 % (42-75); PLATELET COUNT 98 X10'3 (140-440); RED BLOOD COUNT 2.86 X10'6 (4.70-6.10); RED CELL DISTRIBUTION WIDTH 18.2 % (11.5-14.5); WHITE BLOOD COUNT 8.4 X10'3 (4.5-11.0)
[2017-12-26 06:01] LABS: ALANINE AMINOTRANSFERASE 94 U/L (12-78); ALBUMIN 2.6 G/DL (3.4-5.0); ALBUMIN/GLOBULIN RATIO 0.9 (1.1-1.5); ALKALINE PHOSPHATASE 371 IU/L (46-116); ANION GAP 11 (8-16); ASPARTATE AMINO TRANSFERASE 52 U/L (10-37); BILIRUBIN,TOTAL 1.1 MG/DL (0.1-1.0); BLOOD UREA NITROGEN 62 MG/DL (7-18); BUN/CREATININE RATIO 38.8 (5.4-32.0); CALCIUM 8.2 MG/DL (8.5-10.1); CHLORIDE 97 MMOL/L (99-107); GLUCOSE 171 MG/DL (70-104); SODIUM 136 MMOL/L (135-145); TOTAL CARBON DIOXIDE 28.1 MMOL/L (24-32); TOTAL PROTEIN 5.5 G/DL (6.4-8.2); eGFR 43 ML/MIN
[2017-12-26 07:00] VITALS: BP 116/58
[2017-12-26 07:12] LABS: POTASSIUM 2.6 MMOL/L (3.5-5.1)
[2017-12-26] MEDS: furosemide 10 MG/1 ML 10ml inj IV SCH ×2 (07:39→16:36)
[2017-12-26] MEDS: methylPREDNISolone sod succ 125mg/2ml vial IV SCH (07:39)
[2017-12-26] MEDS: buPROPion 75mg tablet PO SCH ×2 (07:39→19:59)
[2017-12-26] MEDS: clopidogrel 75mg tablet PO SCH (07:40)
[2017-12-26] MEDS: nicotine 14mg patch - 24hr TD SCH (07:40)
[2017-12-26] MEDS: pantoprazole 40mg Tablet.DR PO SCH (07:40)
[2017-12-26] MEDS: potassium Cl 20 mEq SR tablet PO SCH ×2 (07:40→16:36)
[2017-12-26] MEDS: lactobacillus rhamnosus 10,000 MMU CELLS/CAPSULE PO SCH ×2 (07:40→16:36)
[2017-12-26] MEDS: fluconazole 100mg tablet PO SCH (07:40)
[2017-12-26] MEDS: docusate sod 100mg capsule PO SCH ×2 (07:40→19:59)
[2017-12-26] MEDS: ferrous sulfate 325mg tablet PO SCH (07:40)
[2017-12-26] MEDS ORDERED: potassium Cl 40MEQ/NS 500ml 500 ML IV PRN ×2 (08:10)
[2017-12-26] MEDS ORDERED: potassium Cl 20 mEq SR tablet PO PRN (08:10)
[2017-12-26] MEDS: potassium Cl 20 mEq SR tablet PO PRN ×3 (08:30→19:59)
[2017-12-26 11:00] VITALS: BP 117/63
[2017-12-26 15:00] VITALS: BP 104/58
[2017-12-26 19:00] VITALS: BP 98/49
[2017-12-26] MEDS: HYDROcodone/acetaminophen 5mg/325mg tablet PO PRN (19:59)
[2017-12-26] MEDS: methylPREDNISolone sod succ/PF 40mg inj. IV SCH (20:00)
[2017-12-26 23:00] VITALS: BP 119/69
[2017-12-27] MEDS: potassium Cl 20 mEq SR tablet PO SCH ×3 (00:15→16:53)
[2017-12-27] MEDS: furosemide 10 MG/1 ML 10ml inj IV SCH ×3 (00:16→16:53)
[2017-12-27 03:19] VITALS: BP 115/67
[2017-12-27 06:11] LABS: MAGNESIUM 1.7 MG/DL (1.5-2.4)
[2017-12-27 07:00] VITALS: BP 111/71
[2017-12-27 07:20] LABS: BASOPHILS % (AUTO) 0 % (0-1); EOSINOPHILS # (AUTO) 0.2 X10'3 (0-0.9); EOSINOPHILS % (AUTO) 1.8 % (0-6); HEMATOCRIT 25.7 % (42.0-52.0); HEMOGLOBIN 8.4 g/dl (14.0-17.9); LYMPHOCYTES # (AUTO) 0.2 X10'3 (1.1-4.8); MEAN CORPUSCULAR HEMOGLOBIN 27.8 PG (27.0-31.0); MEAN CORPUSCULAR HGB CONC 32.9 % (33.0-36.5); MEAN CORPUSCULAR VOLUME 84.6 FL (78-98); MEAN PLATELET VOLUME 10.1 FL (7.4-10.4); MONOCYTES # (AUTO) 0.2 X10'3 (0-0.9); MONOCYTES % (AUTO) 1.7 % (2-12); NEUTROPHILS # (AUTO) 9.1 X10'3 (1.8-7.7); NEUTROPHILS % (AUTO) 94.5 % (42-75); PLATELET COUNT 105 X10'3 (140-440); RED BLOOD COUNT 3.03 X10'6 (4.70-6.10); RED CELL DISTRIBUTION WIDTH 18.8 % (11.5-14.5); WHITE BLOOD COUNT 9.6 X10'3 (4.5-11.0)
[2017-12-27 07:33] LABS: ALANINE AMINOTRANSFERASE 90 U/L (12-78); ALBUMIN 2.7 G/DL (3.4-5.0); ALKALINE PHOSPHATASE 408 IU/L (46-116); ANION GAP 13 (8-16); ASPARTATE AMINO TRANSFERASE 45 U/L (10-37); BILIRUBIN,TOTAL 1.1 MG/DL (0.1-1.0); BLOOD UREA NITROGEN 60 MG/DL (7-18); BUN/CREATININE RATIO 37.5 (5.4-32.0); CALCIUM 8.5 MG/DL (8.5-10.1); CHLORIDE 98 MMOL/L (99-107); GLUCOSE 194 MG/DL (70-104); POTASSIUM 4.1 MMOL/L (3.5-5.1); SODIUM 136 MMOL/L (135-145); TOTAL PROTEIN 5.5 G/DL (6.4-8.2); eGFR 43 ML/MIN
[2017-12-27] MEDS: docusate sod 100mg capsule PO SCH (07:57)
[2017-12-27] MEDS: methylPREDNISolone sod succ/PF 40mg inj. IV SCH (07:57)
[2017-12-27] MEDS: fluconazole 100mg tablet PO SCH (07:58)
[2017-12-27] MEDS: ferrous sulfate 325mg tablet PO SCH (07:58)
[2017-12-27] MEDS: clopidogrel 75mg tablet PO SCH (07:58)
[2017-12-27] MEDS: buPROPion 75mg tablet PO SCH (07:58)
[2017-12-27] MEDS: nicotine 14mg patch - 24hr TD SCH (07:58)
[2017-12-27] MEDS: levoFLOXACIN 750MG TABLET PO SCH (07:58)
[2017-12-27] MEDS: lactobacillus rhamnosus 10,000 MMU CELLS/CAPSULE PO SCH ×2 (07:58→16:53)
[2017-12-27] MEDS: pantoprazole 40mg Tablet.DR PO SCH (07:58)
[2017-12-27] MEDS ORDERED: PRED10TA PO (10:05)
[2017-12-27 11:00] VITALS: BP 122/68
[2017-12-27 13:00] VITALS: BP 117/73
== END 2017-12-27 17:05 | DRG 682 ==
LOC: ER 22:28 → ED HOLD 12-21 00:59 → PCU 3S 12-21 08:28
PROVIDERS: ADMIT Family Medicine; ATTEND Internal Medicine
PROC: 5A09357 Assistance with Respiratory Ventilation, Less than 24 Consecutive Hours, Continuous Positive Airway Pressure (ICD-10-PCS; principal; 2017-12-20)
PROC: 5A09357 Assistance with Respiratory Ventilation, Less than 24 Consecutive Hours, Continuous Positive Airway Pressure (ICD-10-PCS; 2017-12-21)
PROC: 0W9B3ZX Drainage of Left Pleural Cavity, Percutaneous Approach, Diagnostic (ICD-10-PCS; 2017-12-24)
PROC: 0W993ZX Drainage of Right Pleural Cavity, Percutaneous Approach, Diagnostic (ICD-10-PCS; 2017-12-24)
DX: N17.9 Acute kidney failure, unspecified (principal); I50.43 Acute on chronic combined systolic (congestive) and diastolic (congestive) heart failure; J96.21 Acute and chronic respiratory failure with hypoxia; J18.9 Pneumonia, unspecified organism; J90 Pleural effusion, not elsewhere classified; I13.0 Hypertensive heart and chronic kidney disease with heart failure and stage 1 through stage 4 chronic kidney disease, or unspecified chronic kidney disease; D69.6 Thrombocytopenia, unspecified; E87.5 Hyperkalemia; J44.0 Chronic obstructive pulmonary disease with (acute) lower respiratory infection; J44.1 Chronic obstructive pulmonary disease with (acute) exacerbation; B37.49 Other urogenital candidiasis; I48.91 Unspecified atrial fibrillation; D50.9 Iron deficiency anemia, unspecified; E78.00 Pure hypercholesterolemia, unspecified; I25.10 Atherosclerotic heart disease of native coronary artery without angina pectoris; K21.0 Gastro-esophageal reflux disease with esophagitis; K73.9 Chronic hepatitis, unspecified; N18.3 Chronic kidney disease, stage 3 (moderate); E87.6 Hypokalemia; F41.9 Anxiety disorder, unspecified; G89.29 Other chronic pain; K57.90 Diverticulosis of intestine, part unspecified, without perforation or abscess without bleeding; M54.9 Dorsalgia, unspecified; R94.5 Abnormal results of liver function studies; F17.210 Nicotine dependence, cigarettes, uncomplicated; Z95.5 Presence of coronary angioplasty implant and graft; Z90.79 Acquired absence of other genital organ(s); Z90.49 Acquired absence of other specified parts of digestive tract; Z79.899 Other long term (current) drug therapy; Z79.01 Long term (current) use of anticoagulants; Z79.02 Long term (current) use of antithrombotics/antiplatelets; Z88.8 Allergy status to other drugs, medicaments and biological substances
CPT/HCPCS: 32555; 36415; 36600; 71045; 71250; 80048; 80053; 80178; 82803; 82945; 83605; 83615; 83690; 83735; 83880; 83986; 84100; 84132; 84157; 84443; 84484; 85018; 85025; 85610; 85730; 87040; 87070; 87075; 88108; 88305; 89051; 93005; 94640; 94660; 94760; 96374; 96375; 97110; 97162; 97530; 99285; A6212; A6213; C9113; J1815; J1940; J1956; J2405; J2920; J2930; J7030